=== PATIENT | female | born 1975 | race African-American/Black ===

== ENCOUNTER 2021-07-23 17:48 | Emergency (ER) | payer SELFPAY ==
--- OUTSIDE RECORDS SUMMARY | 2021-07-23 17:50 | XMS REPORT | Continuity of Care Document ---
:1975 Author Organization [facility] t Address [address] [place] [address] Care Team Providers Name Role Phone UNKNOWN Primary Care Physician Unavailable Debra PALMA Attending Clinician Unavailable Tristan Galeas Attending Clinician Tristan MONROE Attending Clinician Unavailable Angel RAMIREZ Attending Clinician Unavailable LAKESHA MCGILL M.D. Attending Clinician Unavailable LAKESHA MCGILL M.D. Admitting Clinician Unavailable Payers Payer Name Policy Type Policy Number Effective Date Expiration Date S ource Problems Condition Condition Condition Status Onset Resolution Last Treating Co mments Source Name Details Category Date Date Treatment Clinician Date Other Other Disease Active Univers general general - [place] advice 00 Me dical for for Branch contracept contracept jacinto jacinto management management History of History of Disease Active U gelacio herpes herpes 04-04 [place] Contact Contact Disease Active Univers with and with and 2-21 [place] of (suspected [place] exposure ) exposure 00 Me dical to to Branch infections infections with a with a predominan predominan tly sexual tly sexual mode of mode of transmissi transmissi on on Screening Screening Disease Active Uni vers examinatio examinatio 4-11 it y of n for n for 00:00: [place] venereal venereal 00 Medica l disease disease Branch Hypertensi Hypertensi Disease Active U nivers on, on, 03-19 ity of unspecifie [place] type d type 00 Medical [place] Obesity Obesity Disease Active Univers (BMI (BMI - ity of 30-39.9) 30-39.9) 00:00: [place] 00 Medical Branch Vaginal Vaginal Disease Active Univers discharge discharge -18 ity of 00:00: [place] [id number] Medical Branch History of History of Disease Active U nivers tubal tubal -17 ity of ligation ligation 00:00: [address] Encounter Encounter Disease Active Uni vers for for 5-17 [place] of screening [place] mamm[place] mamm[place] 00 Med[place] ariela for breast for breast Br anch cancer cancer History of History of Disease Active U cassieers depression depression -17 it y of 00:00: [address] Tobacco Tobacco Disease Active Univers use use - ity of disorder disorder 00:00: [address] Allergies, Adverse Reactions, Alerts Allergy Allergy Status Severity Reaction(s) Onset Inactive Treating Comm ents Source Name Type Date Date Clinician NO KNOWN Drug Active Univers ALLERGIE Class ity of S [facility] Social History Social Habit Start Date Stop Date Quantity Comments Source History of tobacco Cigarette Smoker University of use [facility] History SDOH University o f Alcohol Frequency [facility] Branch History SDOH University o f Alcohol Std Drinks [facility] History SDOH University o f Alcohol Binge [facility] al Branch Exposure to Not sure [place] of SARS-CoV-2 (event) [facility] Alcohol intake 2021-04-04 2021-04-04 .86 /d University of 00:00:00 00:00:00 [facility] Cigarette 2016-11-27 2016-11-27 University of pack-years 00:00:00 00:00:00 [facility] Tobacco use and 2016-11-27 2016-11-27 Never used Universit y of exposure 00:00:00 00:00:00 [facility] Alcohol Comment 2016-11-27 2016-11-27 social drinker Unive rsity of 00:00:00 00:00:00 [facility] Cigarettes smoked 2016-11-27 2016-11-27 Univers ity of current (pack per 00:00:00 00:00:00 [facility] ) - Reported Branch Sex Ass[birth year] At [birth year] Universit y of 00:00:00 00:00:00 [facility] Smoking Status Start Date Stop Date Source Current every day smoker 2016-11-27 00:00:00 Uni versity of [facility] Medications Ordered Filled Start Stop Current Ordering Indication Dosage Frequency Signature Comments Components Source Medication Medication Date Date Medication? Clinician (SIG) Name Name acyclovir Yes [id number] 400mg Take 1 Univers 400 mg 9-22 tablet by ity of tablet 00:00: mouth 2 [place] (two) Medical times Branch daily. acyclovir Yes [id number] 400mg Take 1 Univers 400 mg 9-22 tablet by ity of tablet 00:00: mouth 2 [place] 00 (two) Medical times [place] daily. Immunizations Ordered Filled Immunization Date Status Comments Sour e Immunization Name Name SARS-COV-2 COVID-19 2020-11-13 Completed Unive rsity of PFIZER VACCINE 00:00:00 [facility] SARS-COV-2 COVID-19 2020-11-13 Completed Unive rsity of PFIZER VACCINE 00:00:00 [facility] SARS-COV-2 COVID-19 2020-10-12 Completed Unive rsity of PFIZER VACCINE 00:00:00 [facility] SARS-COV-2 COVID-19 2020-10-12 Completed Unive rsity of PFIZER VACCINE 00:00:00 [facility] Influenza Virus 2020-04-20 Completed Universit y of Vaccine Quad .5 mL 00:00:00 [facility] 6+ MO [place] Influenza Virus 2020-04-20 Completed Universit y of Vaccine 00:00:00 [facility] Influenza Virus 2020-04-20 Completed Universit y of Vaccine Quad .5 mL 00:00:00 [facility] 6+ MO [place] Influenza Virus 2020-04-20 Completed Universit y of Vaccine 00:00:00 [facility] Influenza Virus 2019-09-03 Completed Universit y of Vaccine Quad .5 mL 00:00:00 [facility] 6+ MO [place] Influenza Virus 2019-09-03 Completed Universit y of Vaccine Quad .5 mL 00:00:00 [facility] 6+ [place] Branch PPD (TB) 2004-07-14 Completed University 00:00:00 [facility] PPD (TB) 2004-07-14 Completed University of 00:00:00 [facility] TDAP (ADACEL) 2001-07-14 Completed University of VACCINE 00:00:00 [facility] TDAP (ADACEL) 2001-07-14 Completed [facility] VACCINE 00:00:00 [facility] Vital Signs Vital Name Observation Time Observation Value Comments Source Systolic blood 2021-04-04 14:05:00 138 mm[Hg] Univer sity of pressure [facility] Diastolic blood 2021-04-04 14:05:00 88 mm[Hg] Unive rsity of pressure [facility] Heart rate 2021-04-04 14:05:00 88 /min [facility] Body temperature 2021-04-04 14:05:00 36.83 [facility] Respiratory rate 2021-04-04 14:05:00 [facility] Body height 2021-04-04 14:05:00 165.1 cm [facility] Body weight 2021-04-04 14:05:00 115.849 kg [facility] BMI 2021-04-04 14:05:00 42.50 kg/m2 [facility] Procedures Procedure Date / Time Performed Performing Clinician Sourc e GC & CHLAMYDIA 2021-04-04 14:43:00 June Monroe [facility] AMPLIFIED ASSAY [facility] HIV 1/2 AG-AB WITH 2021-04-04 14:35:00 June Monroe [facility] REFLEX [facility] GALV ONLY - SYPHILIS 2021-04-04 14:35:00 June Monroe [facility] IGG/IGM [facility] Encounters Start End Encounter Admission Attending Care Care Encounter Source Date/Time Date/Time Type Type Clinicians Facility Department ID 2021-07-05 2021-07-05 Outpatient Angel PALMA [facility] [id number] Univers 13:00:00 13:00:00 JESSICA [id number] [facility] 2021-05-02 2021-05-02 Outpatient Angel PALMA [facility] [id number] Univers 09:45:00 09:45:00 JESSICA [id number] [facility] 2021-05-02 2021-05-02 Outpatient R LOUIE, [facility] [id number] Univers 09:45:00 09:45:00 [facility] 2021-04-09 2021-04-09 [facility] [id number] Univers 00:00:00 00:00:00 June Hudson PEDIATRIC CRITICAL CARE NURSE [id number] ity [facility] [id number] Arnaldo as MATERNAL [id number] [facility] ical & CHILD [address] [place] [address] 2021-04-04 2021-04-04 Office [facility] [id number] Univers 08:54:02 09:36:30 Visit June Hudson PEDIATRIC CRITICAL CARE NURSE [id number] [id number] Arnaldo as MATERNAL [id number] [facility] & [address] 2021-04-04 2021-04-04 Outpatient R AKINSIPE, [facility] [id number] Univers 09:00:00 09:00:00 JUNE [id number] ity o [facility] 2021-04-04 2021-04-04 Outpatient R AKINSIKM, [facility] [id number] Univers 09:00:00 09:00:00 JUNE ity o [facility] 2021-04-02 2021-04-02 Outpatient AKINSI, [facility] [id number] Univers 08:45:00 08:45:00 JUNE [id number] ity o [facility] 2021-04-02 2021-04-02 Outpatient R AKINSIPE, [facility] [id number] Univers 08:45:00 08:45:00 JUNE ity o [facility] 2020-11-24 2020-11-24 Outpatient R [facility] [id number] Univers 13:30:00 13:30:00 [id number] [facility] 2020-11-24 2020-11-24 Outpatient R [facility] [id number] Univers 13:30:00 13:30:00 it[facility] 2020-11-10 2020-11-10 Outpatient R [facility] [id number] Univers 13:30:00 13:30:00 [id number] ity [facility] 2020-11-10 2020-11-10 Outpatient R [facility] [id number] Univers 13:30:00 13:30:00 ity [facility] 2020-10-20 2020-10-20 Outpatient R [facility] [id number] Univers 13:30:00 13:30:00 [id number] ity [facility] 2020-10-20 2020-10-20 Outpatient R [facility] [id number] Univers 13:30:00 13:30:00 [facility] 2020-10-05 2020-10-05 Outpatient R JAMES [facility] [id number] Univers 11:00:00 11:00:00 EMILY [id number] ity o [facility] 2020-10-05 2020-10-05 Outpatient R JAMES [facility] [id number] Univers 11:00:00 11:00:00 JOEYNDA ity o [facility] 2020-10-04 2020-10-04 Outpatient JAMES [facility] [id number] Univers 09:00:00 09:00:00 EMILY [id number] ity o [facility] 2020-09-26 2020-09-26 Outpatient R JAMES [facility] [id number] Univers 12:45:00 12:45:00 JOEYNDFortunato [id number] ity o [facility] 2020-09-26 2020-09-26 Outpatient R JAMES [facility] [id number] Univers 12:45:00 12:45:00 ROSHUNDA ity o [facility] 2020-06-26 2020-06-26 Outpatient R YAMILET, [facility] [id number] Univers 16:00:00 16:00:00 JUNE [id number] ity o [facility] 2020-05-22 2020-05-22 Outpatient R LOUIE, [facility] [id number] Univers 14:15:00 14:15:00 JESSICA [facility] 2020-05-22 2020-05-22 Outpatient Angel PALMA [facility] [id number] Univers 00:00:00 00:00:00 JESSICA [facility] 2020-04-20 2020-04-20 Outpatient Angel PALMA [facility] [id number] Univers 11:00:00 11:00:00 JESSICA [id number] [facility] 2020-04-20 2020-04-20 Outpatient Angel PALMA [facility] [id number] Univers 11:00:00 11:00:00 JESSICA [facility] 2020-01-20 2020-01-20 Outpatient Angel RAMIREZ [facility] [id number] Univers 09:15:00 09:15:00 PAYAMRAEGANSTEPHANIEFortunato [id number] navin easley [facility] 2020-01-20 2020-01-20 Outpatient Angel RAMIREZ, [facility] [id number] Univers 09:15:00 09:15:00 PAYAMRAEGANSTEPHANIEFortunato easley [facility] 2019-11-05 2019-11-05 Outpatient Angel RAMIREZ [facility] [id number] Univers 08:30:00 08:30:00 EMILY easley [facility] 2017-05-06 2017-05-08 [id number] [facility] 02:00:00 17:53:00 [facility] Results Test Description Test Time Test Comments Results Result Comments Source RPR, Qual 2017-05-06 16:41:00 Test Item Value Reference Range Interpretation Comme nts RPR (test code = RPR) Non-Reactive Non-Reactive N Thyroid Stimulating Hormone (TSH)2017-05-06 06:59:00 Test Item Value Reference Range Interpretation Comments TSH (test code = TSH) 1.75 mIU/mL 0.270-4.200 N Lipid [id number] 06:51:00 Test Item Value Reference Range Interpretation Comments Cholesterol (test 192 mg/dL 0-200 N code = CHOL) Triglycerides (test 88 mg/dL 9-200 N code = TRIG) HDL (test code = 66 mg/dL 50-60 H HDL) Chol/HDL (test code 2.9 Ratio 0.0-4.4 N = CHOLPHDL) LDL, Calculated 108 0-130 N (NOTE)RISK O F HEART (test code = LDLC) DISEASEPu blished by [place] Heart AssociationAnal yte Optim al Boderline Increased RiskC HOL <200 200-239 >240TRI G <150 150-199 >200HDL Male: >60 <40HDL Female: >60 <50 LDL < 100 130-15 9 >160 LDL NEAR OPTIMAL IS 100- 129 VLDL (test code = 18 mg/dL 5-40 N VLDL) LDL/HDL (test code = 2 LDLPHDL)
[2021-07-23 19:27] LABS: SARS-COV-2 RT PCR POSITIVE (NEGATIVE)
--- NOTE | 2021-07-23 19:27 | EDPHYS ---
[facility] Name: Traci Mondragon Age: 46 yrs Sex: Female : 1975 Arrival Date: 07/23/2021 Time: 17:50 Bed Waiting Private MD: ED Physician Davidson Reyna HPI: 07/23 18:57 This 46 yrs old Black Female presents to ER via Ambulatory with complaints of Flu kb Symptoms. 18:57 The patient or guardian reports cough, that is intermittent, described as mild, flu kb symptoms, low-grade fever, myalgias. Onset: The symptoms/episode began/occurred 4 day(s) ago. Severity of symptoms: At their worst the symptoms were moderate, in the emergency department the symptoms are unchanged. Modifying factors: The symptoms are alleviated by nothing, the symptoms are aggravated by nothing. Associated signs and symptoms: Pertinent positives: fever, rhinorrhea, Pertinent negatives: chest pain, diarrhea, ear ache, nausea, sore throat, vomiting. The patient has not experienced similar symptoms in the past. The patient has not recently seen a physician. 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 - Social history:: Smoking status: Patient reports the use of cigarette tobacco products, smokes one-half pack cigarettes per day. ROS: 18:56 Cardiovascular: Negative for chest pain, palpitations, and edema. kb 18:56 Constitutional: Positive for body aches, chills, fatigue, fever, malaise. 18:56 ENT: Positive for sinus congestion. 18:56 Respiratory: Positive for cough, Negative for dyspnea on exertion, hemoptysis, orthopnea, pleurisy, shortness of breath, sputum production, wheezing. 18:56 All other systems are negative. Exam: 18:57 Constitutional: This is a well developed, well nourished patient who is awake, alert, kb and in no acute distress. Head/Face: Normocephalic, atraumatic. ENT: Moist Mucous membranes Cardiovascular: Regular rate and rhythm with a normal S1 and S2. No gallops, murmurs, or rubs. No pulse deficits. Respiratory: Respirations even and unlabored. No increased work of breathing. Talking in full sentences Skin: Warm, dry with normal turgor. Normal color. MS/ Extremity: Pulses equal, no cyanosis. Neurovascular intact. Full, normal range of motion. Neuro: Awake and alert, GCS 15, oriented to person, place, time, and situation. Moves all extremities. Normal gait. Psych: Awake, alert, with orientation to person, place and time. Behavior, mood, and affect are within normal limits. Vital Signs: 18:02 BP 163 / 116; Pulse 104; Resp 18; Temp 97.7; Pulse Ox 99% ; Weight 114.76 kg; Height 5 ll1 ft. 4 in. (162.56 cm); Pain 10/10; 18:02 Body Mass Index 43.43 (114.76 kg, 162.56 cm) ll1 MDM: 18:06 Patient medically screened. kb 18:56 Data reviewed: vital signs, nurses notes. Data interpreted: Pulse oximetry: on room air kb is 99 %. Interpretation: normal. 19:26 Counseling: I had a detailed discussion with the patient and/or guardian regarding: the kb historical points, exam findings, and any diagnostic results supporting the discharge/admit diagnosis, lab results, the need for outpatient follow up, a family practitioner, to return to the emergency department if symptoms worsen or persist or if there are any questions or concerns that arise at home. 07/23 18:06 Order name: COVID-19/FLU A+B (Document "Date of Onset" if Symptomatic); Complete Time: kb 19:28 Administered Medications: No medications were administered Disposition: 07/24 07:05 Co-signature as Attending Physician, Davidson Reyna MD I agree with the assessment and rn plan of care. Attestation: The patient's history, exam findings, diagnostics, and a summary of any interventions or procedures was reviewed in detail with Jil AVILA. Disposition Summary: 07/23/21 19:26 Discharge Ordered Location: Home kb Condition: Stable kb Diagnosis - Coronavirus infection, unspecified kb Followup: kb - With: Emergency Department - When: As needed - Reason: Worsening of condition Followup: kb - With: Private Physician - When: 2 - 3 days - Reason: Recheck today's complaints, Continuance of care, Re-evaluation by your physician Discharge Instructions: - Discharge Summary Sheet kb - Viral Respiratory Infection, [id number] kb - COVID-19 kb Forms: - Medication Reconciliation Form kb - Thank You Letter kb - Antibiotic Education kb - Prescription Opioid Use kb Signatures: Dispatcher [employer] EDJil Foreman, CANDY DECORATOR-C CANDY DECORATOR-Davidson Yang MD MD rn Lewis, Lynsay, RN RN ll1 Corrections: (The following items were deleted from the chart) 07/23 18:04 18:04 PMHx: None; ll1 ll1
--- NOTE | 2021-07-23 19:27 | ER ---
Nurse's Notes [facility] Name: Traci Mondragon Age: 46 yrs Sex: Female : 1975 Arrival Date: 07/23/2021 Time: 17:50 Bed Waiting Private MD: Diagnosis: Coronavirus infection, unspecified Presentation: 07/23 18:02 Chief complaint: Patient states: Cough, body aches, fever since Friday. Coronavirus ll1 screen: Vaccine status: Patient reports receiving the 2nd dose of the covid vaccine. Client denies travel out of the [place] in the last 14 days. congestion, cough unrelated to allergies, fatigue, fever, headache, Client presents with at least one sign or symptom that may indicate coronavirus-19. Standard/surgical mask placed on the client. Ebola Screen: Patient denies travel to an Ebola-affected area in the 21 days before illness onset. Initial Sepsis Screen: Does the patient meet any 2 criteria? HR > 90 bpm. No. Patient's initial sepsis screen is negative. Does the patient have a suspected source of infection? Yes: Productive cough/pneumonia. Risk Assessment: Do you want to hurt yourself or someone else? Patient reports no desire to harm self or others. Onset of symptoms was July 20, 2021. 18:02 Method Of Arrival: Ambulatory ll1 18:02 Acuity: THIAGO 4 ll1 Triage Assessment: 19:45 General: Appears in no apparent distress. Behavior is calm, cooperative, appropriate ll1 for age. Pain: Denies pain. 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 - Social history:: Smoking status: Patient reports the use of cigarette tobacco products, smokes one-half pack cigarettes per day. Screenin:45 Abuse screen: Denies threats or abuse. Nutritional screening: No deficits noted. ll1 Tuberculosis screening: No symptoms or risk factors identified. Fall Risk Total Pedro Fall Scale indicates No Risk (0-24 pts). Vital Signs: 18:02 BP 163 / 116; Pulse 104; Resp 18; Temp 97.7; Pulse Ox 99% ; Weight 114.76 kg; Height 5 ll1 ft. 4 in. (162.56 cm); Pain 10/10; 18:02 Body Mass Index 43.43 (114.76 kg, 162.56 cm) ll1 ED Course: 17:50 Patient arrived in ED. mr 18:04 Triage completed. ll1 18:04 Arm band placed on. ll1 18:06 Jil Fowler FNP-C is [facility]. kb 18:06 Davidson Reyna MD is Attending Physician. kb 19:45 Patient has correct armband on for positive identification. ll1 19:45 No provider procedures requiring assistance completed. Patient did not have IV access ll1 during this emergency room visit. Administered Medications: No medications were administered Outcome: 19:26 Discharge ordered by . kb 19:45 Discharged to home ambulatory. ll1 19:45 Condition: stable 19:45 Discharge instructions given to patient, Instructed on discharge instructions, follow up and referral plans. Demonstrated understanding of instructions, follow-up care. 19:45 Patient left the ED. ll1 Signatures: Jil Fowler FNP-C FNP-Jazmine Harvey Genet Jean RN RN ll1 Corrections: (The following items were deleted from the chart) 18:04 18:04 PMHx: None; ll1 ll1
[2021-07-23 19:51] VITALS: BP 163/116; TEMP 97.7; O2SAT 99
== END 2021-07-23 19:45 | disposition home or self-care (01) ==
LOC: ER 17:48
DX: U07.1 COVID-19 (principal); I10 Essential (primary) hypertension
CPT/HCPCS: 0240U; 99281

== ENCOUNTER 2021-12-01 21:47 | Emergency (ER) | payer SELFPAY ==
--- OUTSIDE RECORDS SUMMARY | 2021-12-01 21:53 | XMS REPORT | Continuity of Care Document ---
:1975 Author Organization [facility] t Address [address] [place] [address] Care Team Providers Name Role Phone UNKNOWN Primary Care Physician Unavailable Angel Pham Attending Clinician Debra PALMA Attending Clinician Unavailable Tristan Galeas Attending Clinician Tristan WOODARD Attending Clinician Unavailable Angel RAMIREZ Attending Clinician Unavailable LAKESHA MCGILL M.D. Attending Clinician Unavailable LAKESHA MCGILL M.D. Admitting Clinician Unavailable Payers Payer Name Policy Type Policy Number Effective Date Expiration Date S ource Problems Condition Condition Condition Status Onset Resolution Last Treating Co mments Source Name Details Category Date Date Treatment Clinician Date Other Other Disease Active Univers general general 9-22 [place] dical for for Branch contracept contracept jacinto jacinto management management History of History of Disease Active U nivers herpes herpes 9-22 [place] of genital[place] type d type [facility] Obesity Obesity Disease Active Univers (BMI (BMI - ity of 30-39.9) 30-39.9) 00:00: [place] [address] [facility] Branch Vaginal Vaginal Disease Active Univers discharge discharge -18 ity of 00:00: [place] [address] Medical Branch History of History of Disease Active U nivers tubal tubal -17 ity of ligation ligation 00:00: [place] [address] [place] Encounter Encounter Disease Active Uni vers for for 5-17 ity of screening screening 00:00: Addi krueger mammogram mammogram 00 [facility] ariela for breast for breast Br anch cancer cancer History of History of Disease Active U nivers depression depression -17 it y of 00:00: [place] [facility] Tobacco Tobacco Disease Active Univers use use 17 ity of disorder disorder 00:00: [address] Allergies, Adverse Reactions, Alerts Allergy Allergy Status Severity Reaction(s) Onset Inactive Treating Comm ents Source Name Type Date Date Clinician NO KNOWN Drug Active Univers ALLERGIE Class ity of S [facility] Social History Social Habit Start Date Stop Date Quantity Comments Source History of tobacco Cigarette Smoker University of use [facility] History SDOH University o f Alcohol Frequency [facility] History SDOH University o f Alcohol Std Drinks [facility] History SDLA University o f Alcohol Binge [facility] Branch Exposure to Not sure University of SARS-CoV-2 (event) [facility] Alcohol intake 2021-04-04 2021-04-04 .86 /d University of 00:00:00 00:00:00 [facility] Cigarettes smoked 2016-11-27 2016-11-27 Univers ity of current (pack per 00:00:00 00:00:00 [facility] ) - Reported Branch Cigarette 2016-11-27 2016-11-27 University of pack-years 00:00:00 00:00:00 [facility] Tobacco use and 2016-11-27 2016-11-27 Never used Universit y of exposure 00:00:00 00:00:00 [facility] Alcohol Comment 2016-11-27 2016-11-27 social drinker Unive rsity of 00:00:00 00:00:00 [facility] Sex Ass[birth year] At [birth year] Universit y of 00:00:00 00:00:00 [facility] Smoking Status Start Date Stop Date Source Current every day smoker 2016-11-27 00:00:00 Uni versity of [facility] Medications Ordered Filled Start Stop Current Ordering Indication Dosage Frequency Signature Comments Components Source Medication Medication Date Date Medication? Clinician (SIG) Name Name acyclovir 2020-0 Yes [id number] 400mg Take 1 Univers 400 mg 9-22 tablet by ity of tablet 00:00: mouth 2 [place] 00 (two) Medical times Branch daily. acyclovir 2020-0 Yes [id number] 400mg Take 1 Univers 400 mg 9-22 tablet by ity of tablet 00:00: mouth 2 [place] 00 (two) Medical times Branch daily. acyclovir 2020-0 Yes [id number] 400mg Take 1 Univers 400 mg 9-22 tablet by ity of tablet 00:00: mouth 2 [place] 00 (two) Medical times Branch daily. Immunizations Ordered Filled Immunization Date Status Comments Sour e Immunization Name Name SARS-COV-2 COVID-19 2020-11-13 Completed Unive rsity of PFIZER VACCINE 00:00:00 [facility] SARS-COV-2 COVID-19 2020-11-13 Completed Unive rsity of PFIZER VACCINE 00:00:00 [facility] SARS-COV-2 COVID-19 2020-11-13 Completed Unive rsity of PFIZER VACCINE 00:00:00 [facility] SARS-COV-2 COVID-19 2020-10-12 Completed Unive rsity of PFIZER VACCINE 00:00:00 [facility] SARS-COV-2 COVID-19 2020-10-12 Completed Unive rsity of PFIZER VACCINE 00:00:00 [facility] SARS-COV-2 COVID-19 2020-10-12 Completed Unive rsity of PFIZER VACCINE 00:00:00 [facility] Influenza Virus 2020-04-20 Completed Universit y of Vaccine Quad .5 mL 00:00:00 [facility] 6+ [place] Influenza Virus 2020-04-20 Completed Universit y of Vaccine 00:00:00 [facility] Influenza Virus 2020-04-20 Completed Universit y of Vaccine Quad .5 mL 00:00:[address] [facility] IM 6+ MO Branch Influenza Virus 2020-04-20 Completed Universit y of Vaccine 00:00:00 [facility] Influenza Virus 2020-04-20 Completed Universit y of Vaccine Quad .5 mL 00:00:00 [facility] 6+ [place] Branch Influenza Virus 2020-04-20 Completed Universit y of Vaccine 00:00:00 [facility] Influenza Virus 2019-09-03 Completed Universit y of Vaccine Quad .5 mL 00:00:00 [place] [facility] 6+ [place] Branch Influenza Virus 2019-09-03 Completed Universit y of Vaccine Quad .5 mL 00:00:00 [facility] 6+ MO Branch Influenza Virus 2019-09-03 Completed Universit y of Vaccine Quad .5 mL 00:00:00 [facility] 6+ [place] Branch PPD (TB) 2004-07-14 Completed University of 00:00:00 [facility] PPD (TB) 2004-07-14 Completed University of 00:00:00 [facility] PPD (TB) 2004-07-14 Completed University of 00:00:00 [facility] TDAP (ADACEL) 2001-07-14 Completed University of VACCINE 00:00:00 [facility] TDAP (ADACEL) 2001-07-14 Completed University of VACCINE 00:00:00 [facility] TDAP (ADACEL) 2001-07-14 Completed University of VACCINE 00:00:00 [facility] Vital Signs Vital Name Observation Time Observation Value Comments Source Systolic blood 2021-04-04 14:05:00 138 mm[Hg] Univer sity of pressure [facility] Diastolic blood 2021-04-04 14:05:00 88 mm[Hg] Unive rsity of pressure [facility] Heart rate 2021-04-04 14:05:00 88 /min [facility] Body temperature 2021-04-04 14:05:00 36.83 Senia [facility] Res[facility] 2021-04-04 14:05:00 18 /min [facility] Body height 2021-04-04 14:05:00 165.1 cm [facility] Body weight 2021-04-04 14:05:00 115.849 kg [facility] BMI 2021-04-04 14:05:00 42.50 kg/m2 Universi ty [facility] Procedures Procedure Date / Time Performed Performing Clinician Sourc e GC & CHLAMYDIA 2021-04-04 14:43:00 June Woodard [facility] AMPLIFIED ASSAY [facility] HIV 1/2 AG-AB WITH 2021-04-04 14:35:00 June Woodard [facility] GALV ONLY - [place] 2021-04-04 14:35:00 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 [id number] ity of [facility] [id number] Arnaldo as MATERNAL [id number] Med ical & CHILD [address] [place] [address] 2021-07-05 2021-07-05 [facility] [id number] Univers 13:00:00 13:00:00 JESSICA [id number] [facility] 2021-05-02 2021-05-02 [facility] [id number] Univers 09:45:00 09:45:00 JESSICA [id number] [facility] 2021-05-02 2021-05-02 [facility] [id number] Univers 09:45:00 09:45:00 JESSICA [facility] 2021-04-09 2021-04-09 Telephone Yamilet [facility] [id number] Univers 00:00:00 00:00:00 June Hudson WALL COVERING INSTALLER [id number] [facility] [id number] Arnaldo as MATERNAL [id number] [facility] ical & CHILD [address] [place] [address] 2021-04-04 2021-04-04 Office Yamilet [facility] [id number] Univers 08:54:02 09:36:30 Visit June Hudson WALL COVERING INSTALLER [id number] [facility] [id number] Arnaldo as MATERNAL [phone] [facility] ical & CHILD [address] [place] [address] 2021-04-04 2021-04-04 Outpatient R AKINSIPE, [facility] [id number] Univers 09:00:00 09:00:00 JUNE [id number] ity o [facility] 2021-04-04 2021-04-04 Outpatient R AKINSIPE, [facility] [id number] Univers 09:00:00 09:00:00 JUNE ity o [facility] 2021-04-02 2021-04-02 Outpatient AKINSIPE, [facility] [id number] Univers 08:45:00 08:45:00 JUNE [id number] ity o [facility] 2021-04-02 2021-04-02 Outpatient R AKINSIPE, [facility] [id number] Univers 08:45:00 08:45:00 JUNE ity o [facility] 2020-11-24 2020-11-24 Outpatient R [facility] [id number] Univers 13:30:00 13:30:00 [id number] [facility] 2020-11-24 2020-11-24 Outpatient R [facility] [id number] Univers 13:30:[facility]10 2020-11-10 Outpatient R [facility] [id number] Univers 13:30:00 13:30:00 [id number] [facility] 2020-11-10 2020-11-10 Outpatient R [facility] [id number] Univers 13:30:00 [facility]:30:[facility] 2020-10-20 2020-10-20 Outpatient R [facility] [id number] Univers 13:30:00 13:30:00 [id number] [facility] 2020-10-20 2020-10-20 Outpatient R [facility] [id number] Univers 13:30:00 13:30:00 ity of [facility] 2020-10-05 2020-10-05 Outpatient Angel RAMIREZ [facility] [id number] Univers 11:00:00 11:00:00 JOEYMIRANDA [id number] ity o f [facility] 2020-10-05 2020-10-05 Outpatient Angel RAMIREZ [facility] [id number] Univers 11:00:00 11:00:00 JOEYNDA ity o f [facility] 2020-10-04 2020-10-04 Outpatient JAMES [facility] [id number] Univers 09:00:00 09:00:00 PAYAMRAEGANMIRANDA [id number] ity o [facility] 2020-09-26 2020-09-26 Outpatient Angel RAMIREZ [facility] [id number] Univers 12:45:00 12:45:00 JOEYMIRANDA [id number] ity o [facility] 2020-09-26 2020-09-26 Outpatient Angel RAMIREZ [facility] [id number] Univers 12:45:00 12:45:00 JOEYMIRANDA ity o [facility] 2020-06-26 2020-06-26 Outpatient R YAMILET, [facility] [id number] Univers 16:00:00 16:00:00 JUNE [id number] ity o [facility] 2020-05-22 2020-05-22 Outpatient Angel PALMA, [facility] [id number] Univers 14:15:00 14:15:00 JESSICA [facility] 2020-05-22 2020-05-22 Outpatient Angel PALMA, [facility] [id number] Univers 00:00:00 00:00:00 JESSICA [facility] 2020-04-20 2020-04-20 [facility] [id number] Univers 11:00:00 11:00:00 JESSICA [id number] [facility] 2020-04-20 2020-04-20 [facility] [id number] Univers 11:00:00 11:00:00 JESSICA [facility] 2020-01-20 2020-01-20 Outpatient Angel ARMIREZ [facility] [id number] Univers 09:15:00 09:15:00 CELY [id number] navin easley [facility] 2020-01-20 2020-01-20 Outpatient Angel RAMIREZ [facility] [id number] Univers 09:15:00 09:15:00 CELY easley [facility] 2019-11-05 2019-11-05 Outpatient Angel RAMIREZ [facility] [id number] [facility] 08:30:00 08:30:00 CELY easley [facility] 2017-05-06 2017-05-08 Inpatient Kush MCGILL, [facility] [id number] 02:00:00 17:53:00 [facility] Results Test Description Test Time Test Comments Results Result Comments Source CT/NG, NAAT, URINE 2021-09-07 15:58:55 Test Item Value Reference Range Interpretation Comme nts GONORRHEA, NAAT NEGATIVE NEGATIVE IMPORTANT NOTICE: SEE ANNOUNCEMENT (test code = [place] [address]) [email or web address] Note: Assay methodolo gy is nucleic acid amplification by transcriptio n mediated amplification (TMA) utilizing the Aptima Combo 2 Assay. CHLAMYDIA, NAAT NEGATIVE NEGATIVE IMPORTANT NOTICE: SEE ANNOUNCEMENT (test code = [place] [address]) [email or web address] Note: Assay methodolo gy is nucleic acid amplification by transcriptio n mediated amplification (TMA) utilizing the Aptima Combo 2 Assay. PAP TEST, THINPREP, [id number] 15:46:34 Test Item Value Reference Range Interpretation Comments SOURCE: (test Cervical code = 8001) SLIDES: (test 1 code = 8011) LMP: (test code 07/14/2021 = 8021) SPECIMEN (NOTE) Satisfacto ry for ADEQUACY: (test evaluation. code = 87057) Endocervical cells/transform ation zone component not identified. INTERPRETATION: NILM/NO EPITH. (test code = ABNORMALITY;SEE 52085) BELOW -------- - NEGATIVE FOR INTRAEPITHELIAL LESION OR MALIGNANCY ( NILM) -------- -------- -------- ---- OTHER COMMENTS: (NOTE) Shift in fredrick ra (test code = suggestive of b acterial 8081) vaginosis. 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 The Pap test is a screening test with an inherent, but l ow probability of error. Your patient sh ould be reminded to consult you immediately if she experiences any suspicious signs or symptoms, regar dless of her Pap test re sult. An alternate r eport format containi ng images or conso lidated prior Pap hi story is available as applicable. UNLESS OTHERWIS E INDICATED, ALL TESTING PERFORMED [facility] [employer] [address] [place] [address] 4 LABORATORY DI VALERIA: Irina SHOEMAKER [id number] CAP ACCREDITATION N O. [id number] VAGINAL PATHOGENS DNA [id number] 14:04:03 Test Item Value Reference Range Interpretation Comments AMARA SPECIES (test NEGATIVE NEGATIVE code = ) G. VAGINALIS (test POSITIVE NEGATIVE A code = ) T. VAGINALIS (test NEGATIVE NEGATIVE UN LESS OTHERWISE code = ) INDICATED, ALL TESTING PERFORMED [facility] [employer] [address] [place] [address] 4 LABORATORY DIR CYNTHIA: MANSI WEN M.D. CLIA NUMBER [id number] CAP ACCREDITATION N O. [id number] HIV 1/2 4TH GEN, RFLX [id number] 03:43:31 Test Item Value Reference Range Interpretation Comments HIV 1/2 4TH GEN, RFLX CONF (test NON-REACTIVE NON-REACTIVE code = 3514) HEPATITIS PANEL, [id number] 03:43:31 Test Item Value Reference Range Interpretation Comments HEPATITIS A IgM (test NON-REACTIVE NON-REACTIVE code = 58546) HEPATITIS B CORE IgM NON-REACTIVE NON-REACTIVE (test code = 4644) HEPATITIS B SURF AG NON-REACTIVE NON-REACTIVE (test code = 2739) HEPATITIS C ANTIBODY NON-REACTIVE NON-REACTIVE (test code = 4675) INTERPRETATION (NOTE) Hepatiti s A HEPATITIS A: (test code sero logy shows no = 2552) evidence of acu te hepatitis A. INTERPRETATION (NOTE) Hepatiti s B HEPATITIS B: (test code sero logy shows no = 38265) evidence of acu te hepatitis B and no indication of exposure to hepatitis B vir us in the previous joseph eight months. INTERPRETATION (NOTE) Hepatiti s C HEPATITIS C: (test code sero logy shows no = 98432) evidence of exposure to hepatitisC viru s at this time. It can take up to 12 months after exposure tothe hepatitis C vir us for antibodies to become detectab le in the bloo d in certain patients. [id number] 03:39:24 Test Item Value Reference Range Interpretation Comments RPR RESULT (test code = NON-REACTIVE NON-REACTIVE 3501) RPR TITER (test code = 3500) NOT INDIC. TITER NOT INDIC. RPR, [id number] 16:41:00 Test Item Value Reference Range Interpretation Comments RPR (test code = RPR) Non-Reactive Non-Reactive N Thyroid Stimulating Hormone (TSH)2017-05-06 06:59:00 Test Item Value Reference Range Interpretation Comments TSH (test code = TSH) 1.75 mIU/mL 0.270-4.200 N Lipid [id number] 06:51:00 Test Item Value Reference Range Interpretation Comments Cholesterol (test 192 mg/dL 0-200 N code = CHOL) Triglycerides (test 88 mg/dL 9-200 N code = TRIG) HDL (test code = 66 mg/dL 50-60 H HDL) Chol/HDL (test code 2.9 Ratio 0.0-4.4 N = CHOLPHDL) LDL, Calculated 108 0-130 N (NOTE)RISK O F HEART (test code = LDLC) DISEASEPu blished by Hait[place] Heart AssociationAnal yte Optim al Boderline Increased RiskC HOL <200 200-239 >240TRI G <150 150-199 >200HDL Male: >60 <40HDL Female: >60 <50 LDL < 100 130-15 9 >160 LDL NEAR OPTIMAL IS 100- 129 VLDL (test code = 18 mg/dL 5-40 N VLDL) LDL/HDL (test code = 2 LDLPHDL)
[2021-12-01 22:39] LABS: Urine Blood 1+ (Negative); Urine Glucose Negative (Negative); Urine Protein 2+ (Negative); Urine Specific Gravity >=1.030 (1.005-1.030)
[2021-12-01 23:00] LABS: Barbiturates NEGATIVE (NEGATIVE); Benzodiazepines NEGATIVE (NEGATIVE); Cocaine POSITIVE (NEGATIVE); METHAMPHETAM NEGATIVE (NEGATIVE); Methadone NEGATIVE (NEGATIVE); Opiates NEGATIVE (NEGATIVE); Phencyclidine NEGATIVE (NEGATIVE); THC Cannibis NEGATIVE (NEGATIVE)
--- NOTE | 2021-12-01 23:26 | ER ---
Nurse's Notes [facility] Name: Traci Mondragon Age: 46 yrs Sex: Female : 1975 Arrival Date: 12/01/2021 Time: 21:51 Bed Waiting Private MD: Diagnosis: Cocaine use, unspecified, uncomplicated Presentation: 12/01 22:17 Chief complaint: Patient states: "I had a relapse and I called the police department tw5 and now I am here. I took cocaine and Percocet.". Chief complaint: Patient states: "I am so embarrassed.". Coronavirus screen: Vaccine status: Patient reports receiving the 2nd dose of the covid vaccine. Moderna. Ebola Screen: Patient negative for fever greater than or equal to 101.5 degrees Fahrenheit, and additional compatible Ebola Virus Disease symptoms Patient denies exposure to infectious person. Patient denies travel to an Ebola-affected area in the 21 days before illness onset. Initial Sepsis Screen: Does the patient meet any 2 criteria? HR > 90 bpm. No. Patient's initial sepsis screen is negative. Does the patient have a suspected source of infection? No. Patient's initial sepsis screen is negative. Risk Assessment: Do you want to hurt yourself or someone else? Patient reports no desire to harm self or others. Onset of symptoms is unknown. 22:17 Method Of Arrival: Law Enforcement: Elana KUMAR [facility] 22:17 Acuity: THIAGO 2 tw5 Triage Assessment: 22:24 General: Appears in no apparent distress. Behavior is anxious. Pain: Denies pain. 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 It has been more than one year since last vaccine. - Social history:: Smoking status: Patient reports the use of cigarette tobacco products, Patient uses street drugs, cocaine. Screenin:17 Abuse screen: Denies threats or abuse. Denies injuries from another. Nutritional tw5 screening: No deficits noted. Tuberculosis screening: No symptoms or risk factors identified. Fall Risk None identified. Assessment: 23:20 General: Appears in no apparent distress. Behavior is calm, cooperative, appropriate tw5 for age. Pain: Denies pain. Neuro: No deficits noted. 23:23 General: Reports "I am just want to go home.". tw5 Overdose: 23:18 [place] Suicide Severity Screening: "In the past month, have you wished you were tw5 or wished you could go to sleep and not wake up?" Patient responds "no." "In the past month, have you actually had any thoughts of killing yourself?" Patient responds "no." "In your lifetime, have you ever done anything, started to do anything, or prepared to do anything to end your life?" Patient responds "no.". 23:18 [place] Suicide Severity Screening: "In the past month, have you wished you were tw5 or wished you could go to sleep and not wake up?" Patient responds "yes." Based off client's responses, additional C-SSRS screening questions required. 23:23 [place] Suicide Severity Screening: "In the past month, have you actually had any tw5 thoughts of killing yourself?" Patient responds "yes." Based off client's responses, additional C-SSRS screening questions required. Vital Signs: 22:17 BP 172 / 112; Pulse 141; Resp 18; Temp 98.8(O); Pulse Ox 100% on R/A; Weight 99.79 kg; tw5 Height 5 ft. 5 in. (165.10 cm); Pain 0/10; 23:18 BP 141 / 101; Pulse 130; Resp 18; Pulse Ox 100% on R/A; tw5 22:17 Body Mass Index 36.61 (99.79 kg, 165.10 cm) tw5 ED Course: 21:51 Patient arrived in ED. jj6 22:23 Triage completed. tw5 22:24 Arm band placed on right wrist. tw5 22:32 Everardo Panda PA is PHCP. cp 22:32 Everardo Rondon MD is Attending Physician. cp 22:42 UDS Sent. mb7 23:17 Patient has correct armband on for positive identification. tw5 23:23 No provider procedures requiring assistance completed. Patient did not have IV access tw5 during this emergency room visit. Administered Medications: No medications were administered Medication: 23:23 VIS not applicable for this client. Outcome: 23:25 Discharge ordered by . emma 23:29 Discharged to home ambulatory. tw 23:29 Condition: good 23:29 Discharge instructions given to patient, Instructed on discharge instructions, follow up and referral plans. Demonstrated understanding of instructions, follow-up care. 23:30 Patient left the ED. tw Signatures: Everardo Panda PA PA cp Wood, Tiffany tw5 Sharifa Ulloaj6 Jazmine Ga mb7 Corrections: (The following items were deleted from the chart) 23:23 23:17 BASIC METABOLIC PANEL+C.LAB.BRZ drawn and sent. EDMS 23:23 23:17 CBC+H.LAB.BRZ drawn and sent. EDMS 23:23 23:17 Troponin High Sensitivity+C.LAB.BRZ drawn and sent. EDMS
--- NOTE | 2021-12-01 23:26 | EDPHYS ---
Physician Documentation [facility] Name: Traci Mondragon Age: 46 yrs Sex: Female : 1975 Arrival Date: 12/01/2021 Time: 21:51 Bed Waiting Private MD: ED Physician Everardo Rondon HPI: 12/01 23:19 This 46 yrs old Black Female presents to ER via Law Enforcement with complaints of Drug cp Abuse. 23:19 The patient presents to the emergency department with a history of substance abuse, cp Type: cocaine. Onset: The symptoms/episode began/occurred yesterday. Past psychiatric history: Prior diagnosis: addiction history. Associated signs and symptoms: The patient has no apparent associated signs or symptoms. Patient brought to ED by law enforcement for reports use of cocaine. Patient reports last use was yesterday. Denies any chest pain, denies abdominal pain. Patient denies being suicidal and/or homicidal ideation. 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 It has been more than one year since last vaccine. - Social history:: Smoking status: Patient reports the use of cigarette tobacco products, Patient uses street drugs, cocaine. ROS: 23:22 Eyes: Negative for injury, pain, redness, and discharge. cp 23:22 Constitutional: Negative for body aches, chills, fever, poor PO intake. 23:22 Cardiovascular: Negative for chest pain, edema, palpitations. 23:22 Respiratory: Negative for cough, shortness of breath, wheezing. 23:22 Abdomen/GI: Negative for abdominal pain, nausea, vomiting, and diarrhea, constipation. 23:22 Neuro: Negative for altered mental status, dizziness, headache, syncope, weakness. 23:22 Psych: Negative for auditory hallucinations, visual hallucinations, homicidal ideation, suicide gesture, suicidal ideation. 23:22 All other systems are negative. Exam: 23:23 Constitutional: The patient appears in no acute distress, alert, awake, cp non-diaphoretic, non-toxic, well developed, well nourished. 23:23 Head/Face: Normocephalic, atraumatic. cp 23:23 Cardiovascular: Rate: tachycardic, Edema: is not appreciated, JVD: is not appreciated. 23:23 Respiratory: the patient does not display signs of respiratory distress, Respirations: normal, no use of accessory muscles, no retractions, labored breathing, is not present. 23:23 Abdomen/GI: Exam negative for discomfort, distension, guarding, Inspection: abdomen appears normal. 23:23 Neuro: Orientation: to person, place \T\ time. Mentation: is normal, Cerebellar function: is grossly normal, Motor: moves all fours, strength is normal, Gait: is steady, at a normal pace, without difficulty. Vital Signs: 22:17 BP 172 / 112; Pulse 141; Resp 18; Temp 98.8(O); Pulse Ox 100% on R/A; Weight 99.79 kg; tw5 Height 5 ft. 5 in. (165.10 cm); Pain 0/10; 23:18 BP 141 / 101; Pulse 130; Resp 18; Pulse Ox 100% on R/A; tw5 22:17 Body Mass Index 36.61 (99.79 kg, 165.10 cm) tw5 MDM: 23:25 Patient medically screened. cp 23:25 Differential diagnosis: drug withdrawal. depression, psychosis secondary to cp non-compliance. 23:25 Data reviewed: vital signs, nurses notes. Counseling: I had a detailed discussion with cp the patient and/or guardian regarding: the historical points, exam findings, and any diagnostic results supporting the discharge/admit diagnosis, the presence of at least one elevated blood pressure reading (>120/80) during this emergency department visit, to return to the emergency department if symptoms worsen or persist or if there are any questions or concerns that arise at home. 12/01 22:17 Order name: UDS; Complete Time: 23:27 tw5 12/01 22:39 Order name: Urine Dipstick-Ancillary; Complete Time: 23:27 EDMS 12/01 22:43 Order name: EKG; Complete Time: 22:44 tw5 12/01 22:17 Order name: Urine Dipstick-Ancillary (obtain specimen); Complete Time: 22:41 tw5 12/01 22:17 Order name: Urine Test (obtain specimen); Complete Time: 22:41 12/01 22:43 Order name: Cardiac monitoring; Complete Time: 23:17 12/01 22:43 Order name: EKG - Nurse/Tech; Complete Time: 23:17 12/01 22:43 Order name: Labs collected and sent; Complete Time: 23:17 Administered Medications: No medications were administered Disposition Summary: 12/01/21 23:25 Discharge Ordered Location: Home cp Problem: an ongoing problem cp Symptoms: are unchanged cp Condition: Stable cp Diagnosis - Cocaine use, unspecified, uncomplicated cp Followup: cp - With: Private Physician - When: 1 - 2 days - Reason: Recheck today's complaints Discharge Instructions: - Discharge Summary Sheet cp - Cocaine Use Disorder cp Forms: - Medication Reconciliation Form cp - Thank You Letter cp - Antibiotic Education cp - Prescription Opioid Use cp Signatures: Dispatcher [employer] EDMS Everardo Panda PA PA cp Wood, Tiffany Corrections: (The following items were deleted from the chart) 23:22 22:43 IV Saline Lock ordered. 23:22 22:43 Oxygen Per Protocol ordered. 23:22 22:43 O2 Sat Monitoring ordered. 23:23 22:43 BASIC METABOLIC PANEL+C.LAB.BRZ ordered. EDMS EDMS 23:23 22:43 CBC+H.LAB.BRZ ordered. EDMS EDMS 23: 22:43 Troponin High Sensitivity+C.LAB.BRZ ordered. EDMS EDMS
[2021-12-01 23:35] VITALS: TEMP 98.8; O2SAT 100
[2021-12-01 23:37] VITALS: BP 141/101
== END 2021-12-01 23:30 | disposition home or self-care (01) ==
LOC: ER 21:47
DX: F14.90 Cocaine use, unspecified, uncomplicated (principal); I10 Essential (primary) hypertension; Z72.0 Tobacco use
CPT/HCPCS: 80307; 81003; 99283

== ENCOUNTER 2023-02-18 12:42 | Observation (INO) | payer OTHER, SELFPAY ==
--- OUTSIDE RECORDS SUMMARY | 2023-02-18 12:46 | XMS REPORT | Continuity of Care Document ---
:1975 Author Organization [facility] t Address [address] [place] [address] [address] [place] [address] Care Team Providers Name Role Phone UNKNOWN, REFFERING Primary Care Physician Unavailable Cely Pham Attending Clinician MARÍA PALMA Attending Clinician Unavailable June Galeas Attending Clinician [phone] JUNE WOODARD Attending Clinician Unavailable [facility] Resident Attending Clinician Unavailable Isiah Delgado MD Attending Clinician Doctor Unassigned, [place] Attending Clinician Unavailable CELY RAMIREZ Attending Clinician Unavailable Reid Lane DO Attending Clinician María Negron Attending Clinician NGOC MCGILL M.D., Irina CROWDER Attending Clinician Unavailable NGOC MCGILL M.D., NGOC Admitting Clinician Unavail able Payers Payer Name Policy Type Policy Number Effective Date Expiration Date S ource Problems Condition Condition Condition Status Onset Resolution Last Treating Co mments Source Name Details Category Date Date Treatment Clinician Date Other Other Disease Active Univers general general 04-04 [place] counseling [place] 00 Me dical for for Branch contracept contracept jacinto jacinto management management History of History of Disease Active U nivers herpes herpes 9-22 [place] of genital[place] [facility] [place] Contact Disease Active Univers [...] y of n for n for 00:00: [place] venereal venereal 00 Medica l disease disease Branch Hypertensi Hypertensi Disease Active U nivers on, on, 03-19 ity of unspecifie [place] type [place] Obesity Obesity Disease Active Univers (BMI (BMI - ity of 30-39.9) 30-39.9) 00:00: [place] [address] [facility] [place] Vaginal Vaginal Disease Active Univers discharge discharge 5-18 ity of 00:00: [place] [address] [facility] [place] History of History of Disease Active U nivers tubal tubal 5-17 ity of ligation ligation 00:00: [place] [address] [facility] [place] Encounter Encounter Disease Active Uni vers for for 5-17 [place] of screening [place] 00 [facility] ariela for breast for breast Br anch cancer cancer History of History of Disease Active U nivers depression depression 5-17 it y of 00:00: [place] [facility] [place] Tobacco Tobacco Disease Active Univers use use 5-17 ity of disorder disorder 00:00: [address] Allergies, Adverse Reactions, Alerts Allergy Allergy Status Severity Reaction(s) Onset Inactive Treating Comm ents Source Name Type Date Date Clinician NO KNOWN Drug Active Univers ALLERGIE Class ity of S [facility] Social History Social Habit Start Date Stop Date Quantity Comments Source History of tobacco Cigarette Smoker University of use [facility] History SDTX University o f Alcohol Frequency [facility] edical Branch History [facility] University o f Alcohol Std Drinks [place] [facility] [place] History [facility] University o f Alcohol Binge [place] [facility] Exposure to Not sure [facility] SARS-CoV-2 (event) [facility] Alcohol intake 2021-04-04 2021-04-04 .86 /d University of 00:00:00 00:00:00 [facility] Cigarettes smoked 2016-11-27 2016-11-27 Univers ity of current (pack per 00:00:00 00:00:00 ) - Reported Branch Cigarette 2016-11-27 2016-11-27 University of pack-years 00:00:00 00:00:00 [facility] Tobacco use and 2016-11-27 2016-11-27 Never used Universit y of exposure 00:00:00 00:00:00 [facility] Alcohol Comment 2016-11-27 2016-11-27 social drinker Unive rsity of 00:00:00 00:00:00 [facility] Sex Ass[birth year] At [birth year] Universit y of 00:00:00 00:00:00 [facility] Smoking Status Start Date Stop Date Source Current every day smoker 2016-11-27 00:00:00 Uni versity of [facility] Medications Ordered Filled Start Stop Current Ordering Indication Dosage Frequency Signature Comments Components Source Medication Medication Date Date Medication? Clinician (SIG) Name Name acyclovir Yes [id number] 400mg Take 1 Univers 400 mg 9-22 tablet by ity of tablet 00:00: mouth 2 [place] (two) [facility] [place] daily. acyclovir 2020-0 Yes [id number] 400mg Take 1 Univers 400 mg 9-22 tablet by ity of tablet 00:00: mouth 2 [place] (two) [facility] daily. acyclovir 2020-0 Yes [id number] 400mg Take 1 Univers 400 mg 9-22 tablet by ity of tablet 00:00: mouth 2 [place] (two) [facility] daily. Immunizations Ordered Filled Immunization Date Status Comments Sour e Immunization Name Name SARS-COV-2 COVID-19 2020-11-13 Completed Unive rsity of PFIZER VACCINE 00:00:00 [facility] SARS-COV-2 COVID-19 2020-11-13 Completed Unive rsity of PFIZER VACCINE 00:00:00 [facility] SARS-COV-2 COVID-19 2020-11-13 Completed Unive rsity of PFIZER VACCINE 00:00:00 [facility] SARS-COV-2 COVID-19 2020-10-12 Completed Unive rsity of PFIZER VACCINE 00:00:00 [facility] SARS-COV-2 COVID-19 2020-10-12 Completed Unive rsity of PFIZER VACCINE 00:00:00 [facility] SARS-COV-2 COVID-19 2020-10-12 Completed Unive rsity of PFIZER VACCINE 00:00:00 [facility] Influenza Virus 2020-04-20 Completed Universit y of Vaccine Quad .5 mL 00:00:00 [facility] 6+ [place] Influenza Virus 2020-04-20 Completed Universit y of Vaccine 00:00:00 [facility] Influenza Virus 2020-04-20 Completed Universit y of Vaccine Quad .5 mL 00:00:00 [facility] 6+ [place] Influenza Virus 2020-04-20 Completed Universit y of Vaccine 00:00:00 [facility] Influenza Virus 2020-04-20 Completed Universit y of Vaccine Quad .5 mL 00:00:00 [facility] 6+ [place] Influenza Virus 2020-04-20 Completed Universit y of Vaccine 00:00:00 [facility] Influenza Virus 2019-09-03 Completed Universit y of Vaccine Quad .5 mL 00:00:00 [facility] 6+ [place] Influenza Virus 2019-09-03 Completed Universit y of Vaccine Quad .5 mL 00:00:00 [facility] 6+ [place] Influenza Virus 2019-09-03 Completed Universit y of Vaccine Quad .5 mL 00:00:[address] [place] PPD (TB) 2004-07-14 Completed University of 00:00:00 [facility] PPD (TB) 2004-07-14 Completed University of 00:00:00 [facility] PPD (TB) 2004-07-14 Completed University of 00:00:00 [facility] TDAP (ADACEL) 2001-07-14 Completed University of VACCINE 00:00:00 [facility] TDAP (ADACEL) 2001-07-14 Completed University of VACCINE 00:00:00 [facility] TDAP (ADACEL) 2001-07-14 Completed University of VACCINE 00:00:00 [facility] Vital Signs Vital Name Observation Time Observation Value Comments Source Systolic blood 2021-04-04 14:05:00 138 mm[Hg] Univer sity of pressure [facility] Diastolic blood 2021-04-04 14:05:00 88 mm[Hg] Unive rsity of pressure [facility] Heart rate 2021-04-04 14:05:00 88 /min [facility] Body temperature 2021-04-04 14:05:00 36.83 Senia [facility] Respiratory rate 2021-04-04 14:05:00 18 /min [facility] Body height 2021-04-04 14:05:00 165.1 cm [facility] Body weight 2021-04-04 14:05:00 115.849 kg [facility] BMI 2021-04-04 14:05:00 42.50 kg/m2 [facility] Procedures Procedure Date / Time Performed Performing Clinician Sourc e GC & CHLAMYDIA 2021-04-04 14:43:00 June Woodard [facility] AMPLIFIED ASSAY [facility] HIV 1/2 AG-AB WITH 2021-04-04 14:35:00 June Woodard [facility] REFLEX [facility] GALV ONLY - SYPHILIS 2021-04-04 14:35:00 [facility] Encounters Start End Encounter Admission Attending Care Care Encounter Source Date/Time Date/Time Type Type Clinicians Facility Department ID 2023-01-22 2023-01-22 Outpatient [facility]ario 14:43:24 14:43:24 [id number] F Robbin 2023-01-15 2023-01-15 Outpatient [facility] 17:09:12 17:09:12 [id number] F Robbin 2022-12-17 2022-12-17 Outpatient [facility] [place] 09:38:54 09:38:54 [id number] F Robbin 2022-11-06 2022-11-06 Outpatient [facility] [place] 09:49:58 09:49:58 [id number] F Robbin 2022-09-19 2022-09-19 Outpatient [facility] 09:15:37 09:15:37 [id number] F Robbin 2022-08-29 2022-08-29 Outpatient [facility] 08:58:43 08:58:43 [id number] F Ludlow 2022-07-29 2022-07-29 Outpatient [facility] 10:42:20 10:42:20 [id number] F Ludlow 2022-07-16 2022-07-16 Outpatient [facility] 11:21:55 11:21:55 [id number] F Ludlow 2022-05-29 2022-05-29 Outpatient [facility] 16:57:43 16:57:43 [id number] F Ludlow 2022-05-22 2022-05-22 Outpatient [facility] 14:27:03 14:27:03 [id number] F Ludlow 2022-05-20 2022-05-20 Outpatient [facility] 13:46:21 13:46:21 F Ludlow 2021-11-25 2021-11-25 [facility] [id number] Univers 00:00:00 00:00:00 Cely Ortiz FILM AND VIDEO GRAPHICS DESIGNER [id number] ity [facility] [id number] Arnaldo as MATERNAL [phone] Med ical & CHILD [address] [place] [address] 2021-05-02 2021-05-02 Outpatient Angel PALMA [facility] [id number] [facility] 09:45:00 09:45:00 MARÍA taylor [facility] 2021-04-09 2021-04-09 Telephone [facility] [id number] [facility] 00:00:00 00:00:00 June C FILM AND VIDEO GRAPHICS DESIGNER [id number] ity [facility] [id number] Arnaldo as MATERNAL [id number] [facility] ical & CHILD [address] [place] [address] 2021-04-04 2021-04-04 Office [facility] [id number] [facility] 08:54:02 09:36:30 Visit June C FILM AND VIDEO GRAPHICS DESIGNER [id number] ity [facility] [id number] Arnaldo as MATERNAL [phone] [facility] ical & CHILD [address] [place] [address] 2021-04-04 2021-04-04 Outpatient R FER, [facility] [id number] Univers 09:00:00 09:00:00 JUNE holden o tracee [facility] 2021-04-02 2021-04-02 [facility] [id number] Univers 08:45:00 08:45:00 JUNE salgueroy o f [facility] 2020-11-24 2020-11-24 Outpatient R [facility] [id number] Univers 13:30:00 13:30:00 ity of [facility] 2020-11-10 2020-11-10 Outpatient R [facility] [id number] Univers 13:30:00 13:30:00 ity [facility] 2020-10-20 2020-10-20 Office [facility] Resident UNIVERSIT [id number] Univers 13:42:03 14:32:12 Visit DelgadoIsiah kelley [facility] [id number] ity of [facility] [id number] [phone] [facility] [address] 2020-10-20 2020-10-20 Outpatient R [facility] [id number] Univers 13:30:00 13:30:00 ity [facility] 2020-10-20 2020-10-20 Orders Doctor JEROD [id number] Univers 00:00:00 00:00:00 Only Unassigned, JASPER [id number] ity of [place] [facility] [id number] Arnaldo as [id number] [facility] [address] Branch 2020-10-05 2020-10-05 [facility] [id number] Univers 11:00:00 11:00:00 CELY holden o [facility] 2020-10-05 2020-10-05 Office James [facility] [id number] Univers 09:48:47 10:21:23 Visit Cely Ortiz FILM AND VIDEO GRAPHICS DESIGNER [id number] ity of REGIONAL [id number] Arnaldo as MATERNAL [phone] Med ical & CHILD [address] [place] [address] 2020-09-28 2020-09-28 [facility] [id number] Univers 00:00:00 00:00:00 Outreach Reid ALISSA [id number] i ty of [place] [facility] [id number] [place]URITA[place] [id number] [place] dicil [address] [place] 2020-09-26 2020-09-26 [facility] [id number] Univers 12:55:08 13:27:43 Visit Cely Ortiz FILM AND VIDEO GRAPHICS DESIGNER [id number] ity of [facility] [id number] Arnaldo as MATERNAL [id number] [facility] & CHILD [address] [place] [address] 2020-09-26 2020-09-26 [facility] [id number] Univers 12:45:00 12:45:00 CELY salgueroy o f [facility] 2020-05-22 2020-05-22 Hospital [facility] [id number] Univers 06:29:11 23:59:00 Encounter María Richardson SPECIALTY [id number] ity of C[id number] C[place] AT [id number] [facility] [address] [place] [address] 2020-05-22 2020-05-22 [facility] [id number] Univers 00:00:00 00:00:00 MARÍA holden of [facility] 2020-04-24 2020-04-24 Telephone [facility] [id number] Univers 00:00:00 00:00:00 María Richardson FILM AND VIDEO GRAPHICS DESIGNER [id number] it y of REGIONAL [id number] Arnaldo as MATERNAL [phone] [facility] & CHILD [address] [place] [address] 2020-04-20 2020-04-20 Office [facility] [id number] Univers 10:50:54 11:42:31 Visit María Richardson FILM AND VIDEO GRAPHICS DESIGNER [id number] it y of REGIONAL [id number] Arnaldo as MATERNAL [id number] Med ical & CHILD [address] [place] [address] 2020-04-20 2020-04-20 Outpatient R LOUIE [facility] [id number] Univers 11:00:00 11:00:00 MARÍA ittaylor of [facility] 2020-04-20 2020-04-20 Orders Doctor JEROD [id number] Univers 00:00:00 00:00:00 Only Unassigned, JASPER [id number] [facility] [id number] Arnaldo as [id number] [address] 2020-01-20 2020-01-20 [facility] [id number] Univers 09:15:00 09:15:00 CELY easley [facility] 2019-11-05 2019-11-05 [facility] [id number] Univers 08:30:00 08:30:00 CELY easley [facility] 2019-09-03 2019-09-03 [facility] 1.2.840.114 [id number] Univers 09:30:42 09:54:46 Visit Cely Ortiz FILM AND VIDEO GRAPHICS DESIGNER [id number] ity [facility] [id number] Arnaldo as MATERNAL [phone] [facility] ical & CHILD [address] [place] [address] 2017-05-06 2017-05-08 [id number] [facility] 02:00:00 17:53:00 Trip CROWDER M.D. [facility] Results Test Description Test Time Test Comments Results Result Comments Source ESTRADIOL 2022-11-07 10:47:40 Test Item Value Reference Range Interpretation Comme nts ESTRADIOL (test code = 37.4 PG/ML SEE BELOW EXPECTED VALUES FOR ESTRADIOL 2505) FOR FEMALES >=1 8 YEARS FOLLICULAR . . . . . . . . . . . . . PG/ML 12.4-233. 0 OVULATION. . . . . . . . . . . . . . PG/ML 41.0-398.0 LUTEAL PHASE . . . . . . . . . . . . PG/ML 22.3-341. 0 POSTMENOPAUSAL SUPPLEMENTED/NO N-SUPP . PG/ML <138.0/<20.0 NO TE: TO DETERMINE NORMAL VS. SUBNORMAL E STRADIOL IN POSTMENOPAUSAL FEMALES, CONSIDER ULTRASENSITIVE ESTRADIOL ([facility] ORDER CODE 5678). MET HODOLOGY IS SALVATORE JACINTA ELECTROCHEMILUM INESCENT IMMUNOASSAY WITH A LIMIT OF DETECTION OF 17 PG/ML. TSH, THIRD [id number] 10:47:40 Test Item Value Reference Range Interpretation Comments TSH, THIRD GENERATION (test code 1.490 UIU/ML 0.400-4.100 = 2821) FSH + LH [id number] 10:47:40 Test Item Value Reference Range Interpretation Comments FOLLICLE STIM HORMONE 7.9 IU/L SEE BELOW EXPECTED VALUES (test code = 2700) FOR FSH F OR FEMALES >17 YEARS F OLLICULAR 3.5-12.5 IU/L M ID-CYCLE PEAK 4.7-21.5 I U/L LUTEAL PHASE 1 .7-7.7 IU/L POSTMENOPA USAL 25.8-134.8 IU/L LUTEINIZING HORMONE 5.4 IU/L SEE BELOW EXPECTED VALUES (test code = 2776) FOR LH FO R FEMALES >17 YEARS M ALES FEMALES >=18 YE ARS 1.8-8.6 IU/L FO LLICULAR 2.4-12.6 IU/L M ID-CYCLE PEAK 14.0-95.6 IU/L LUTEAL PHASE 1 .0-11.4 IU/L POSTMENOPA USAL 7.7-58.5 IU/L * [facility] has important p athology staff changes e ffective 09/11/2022. New pathology staff will provide uninter rupted, excellent patie nt care and clinical consultation. S ee URL: [email or web address]. UNLESS OTHERWISE INDICATED, ALL TESTING PERFORMED AT INICAL PATHOLOGY LABOR [facility] [address] [place] [address] 1891 4 LABORATORY DIRE CTOR: ALISSA ANDREWS M.D. CLIA NUMBER [id number] [facility] [place] [id number] HEMOGLOBIN [id number] 03:29:36 Test Item Value Reference Range Interpretation Comments HEMOGLOBIN A1c (test code 6.0 % 4.2-5.6 H * [facility] has important = 61216) pathology staff changes effective 09/11. New ro gy staff will provide uninterrupted, excellent patie nt care and clinical consultation. S ee URL: [email or web address]. UNLESS OTHERWISE INDIC ATED, ALL TESTING PER FORMED AT [facility], [facility]. [address] [place] [address] CLIA: [id number], CAP: [id number] TSH, THIRD [id number] 06:19:50 Test Item Value Reference Range Interpretation Comments TSH, THIRD 1.070 UIU/ML 0.400-4.100 UNLESS OTHERWI SE GENERATION (test INDICATED, ALL TESTING code = 2821) PERFORMED [facility] PATHOLOGY [facility], [facility]. [address] [place] [address] [facility] DIRECTOR: MANSI IGNACIO M.D. CLIA NUMBER [id number] CAP ACCREDITATION N O. [id number] COMPREHENSIVE METABOLIC [id number] 03:27:14 Test Item Value Reference Range Interpretation Comments GLUCOSE (test code = 91 MG/DL 70-99 2216) BUN (test code = 14 MG/DL 6-20 2207) CREATININE (test 0.79 MG/DL 0.60-1.30 code = 2214) eGFR (2020 CKD-EPI) 94 ML/MIN/1.73 >60 (test code = 38358) CALC BUN/CREAT (test 18 RATIO 6-28 code = 2235) SODIUM (test code = 138 MEQ/L 651-348 8813) POTASSIUM (test code 4.4 MEQ/L 3.5-5.4 = 2227) CHLORIDE (test code 101 MEQ/L 95-107 = 2215) CARBON DIOXIDE (test 26 MEQ/L 19-31 code = 2206) CALCIUM (test code = 9.9 MG/DL 8.5-10.5 2208) PROTEIN, TOTAL (test 7.4 G/DL 6.1-8.3 code = 2229) ALBUMIN (test code = 4.3 G/DL 3.5-5.2 2200) CALC GLOBULIN (test 3.1 G/DL 1.9-3.7 code = 2240) CALC A/G RATIO (test 1.4 RATIO 1.0-2.6 code = 2234) BILIRUBIN, TOTAL 0.3 MG/DL See_Comment [Automated message] (test code = 2207) The syste m which generated this result transmit mulu reference range : <=1.2. The refe rence range was not u sed to interpret th is result as normal/abnormal . ALKALINE PHOSPHATASE 74 U/L 40-116 (test code = 220) AST (test code = 21 U/L 9-40 2217) ALT (test code = 29 U/L 5-40 2218) LIPID [id number] 03:27:14 Test Item Value Reference Range Interpretation Comments CHOLESTEROL (test 223 MG/DL <200 H code = 2210) TRIGLYCERIDES (test 92 MG/DL <150 code = 2232) HDL CHOLESTEROL (test 71 MG/DL >39 code = 2220) CALC LDL CHOL (test 132 MG/DL <100 H NOTE: C ALCULATED LDL code = 2237) IS BASED ON JOANN-BYERS METHOD WHICHINCLUDES ADJUSTABLE TRIGLYCERIDE:VL DL CHOLESTEROL RAT IO.THIS FACTOR VARIES B Y MEASURED TRIGLY CERIDE AND NON-HDLCHOL ESTEROL CONCENTRATIONS WITH INCREASED CALCU LATED LDL SEENIN HIGH ER TRIGLYCERIDE OR LOWER NON-HDL SPECIME NS. FOR MOREINFORMATION , SEE CLIENT ANNOUNCE MENT AT [email or web address] [email or web address] LDL/HDL 1.86 RATIO <3.22 (test code = 2238) CBC W/AUTO DIFF WITH [id number] 01:53:40 Test Item Value Reference Range Interpretation Comments WBC (test code = 5.8 K/UL 3.5-11.0 1001) RBC (test code = 4.46 M/UL 3.80-5.40 1002) HEMOGLOBIN (test code 12.2 G/DL 11.5-15.5 = 1003) HEMATOCRIT (test code 36.0 % 34.0-45.0 = 1004) MCV (test code = 80.7 fL 80.0-99.0 1005) MCH (test code = 27.4 PG 25.0-33.0 1006) MCHC (test code = 33.9 G/DL 31.0-36.0 1007) RDW (test code = 14.3 % 11.5-15.0 1038) NEUTROPHILS (test 63.1 % code = 1008) LYMPHOCYTES (test 28.8 % code = 1010) MONOCYTES (test code 5.7 % = 1011) EOSINOPHILS (test 1.9 % code = 1012) BASOPHILS (test code 0.3 % = 1013) IMMATURE GRANULOCYTES 0.2 % (test code = 1036) NUCLEATED RBCS (test 0.0 /100 WBC'S See_Comment [Aut omated code = 1065) message] The sy stem which generated this result transmitted reference range : 0.0. The refere nce range was not u sed to interpret th is result as normal/abnormal . PLATELET COUNT (test 343 K/UL 130-400 code = 1015) ABSOLUTE NEUTROPHILS 3.66 K/UL 1.50-7.50 (test code = 1066) ABSOLUTE LYMPHOCYTES 1.67 K/UL 1.00-4.00 (test code = 1067) ABSOLUTE MONOCYTES 0.33 K/UL 0.20-1.00 (test code = 1068) ABSOLUTE EOSINOPHILS 0.11 K/UL 0.00-0.50 (test code = 1040) ABSOLUTE BASOPHILS 0.02 K/UL 0.00-0.20 (test code = 1069) ABS IMMATURE 0.01 K/UL 0.00-0.10 GRANULOCYTES (test code = 1020) ABS NUCLEATED RBCS 0.00 K/UL 0.00-0.11 (test code = 29277) CT/NG, NAAT, [id number] 15:58:55 Test Item Value Reference Range Interpretation Comments GONORRHEA, NAAT NEGATIVE NEGATIVE IMPORTA NT NOTICE: SEE (test code = [place] [address]) [email or web address] Note: Assay methodology is nucleic acid amplification b y sport psychologist m ediated amplification ( TMA) utilizing the A ptima Combo 2 Assay. CHLAMYDIA, NAAT NEGATIVE NEGATIVE IMPORTA NT NOTICE: SEE (test code = [place] [address]) [email or web address] [email or web address] Note: Assay methodology is nucleic acid amplification b y sport psychologist m ediated amplification ( TMA) utilizing the A ptima Combo 2 Assay. PAP TEST, THINPREP, [id number] 15:46:34 Test Item Value Reference Range Interpretation Comments SOURCE: (test Cervical code = 8001) SLIDES: (test 1 code = 8011) LMP: (test code 07/14/2021 = 8021) SPECIMEN (NOTE) Satisfactory f or ADEQUACY: (test evaluation. code = 16962) Endocervical cells/transform ation zone component not identified. INTERPRETATION: NILM/NO EPITH. (test code = ABNORMALITY;SEE 80582) BELOW -------- - NEGATIVE FOR INTRAEPITHELIAL LESION OR MALIGNANCY ( NILM) -------- -------- -------- ---- OTHER COMMENTS: (NOTE) Shift in fredrick ra (test code = suggestive of b acterial 8081) vaginosis. GROOVER OPERATOR Yana M : (test code = [place], [place] 8101) (ASCP) LOCATION: (test (NOTE) Specimens pr ocessed and code = 70357) interpreted at Clinical Pathology[address] [address], Phone: , CLIA: [id number] CPT: (test code (NOTE) 91083 UNLESS OTHERWISE = 8140) INDICATED, COMP UTER AIDED AND CYTOTECHNOLOGIS T SCREENING PERFO RMED. The Pap test is a screening test with an inherent, but l ow probability of error. Your patient sh ould be reminded to con sult you immediately if she experiences any suspicious sign s or symptoms, regar dless of her Pap test re sult. An alternate repor t format containing imag es or consolidated pr ior Pap history is avai lable as applicable. UNL ESS OTHERWISE INDIC ATED, ALL TESTING PER FORMED ATCLINICAL PATH [facility], [facility] [place]. [address] [place] [address] LABORATOR Y DIRECTOR: MANSI IGNACIO M.D. NETTAIA NUMBER [id number] CAP ACCREDITATION N O. [id number] VAGINAL PATHOGENS DNA [id number] 14:04:03 Test Item Value Reference Range Interpretation Comments AMARA SPECIES (test NEGATIVE NEGATIVE code = ) G. VAGINALIS (test POSITIVE NEGATIVE A code = ) T. VAGINALIS (test NEGATIVE NEGATIVE UNLESS O THERWISE code = ) INDICATED, ALL TESTING PERFORMED [facility] NICWV PATHOLOGY [facility] ED, [facility]. [address] [place], [place] [address] LABORATORY DIRE CTOR: Irina SHOEMAKERIA NUMBER [id number] [place] [id number] HIV 1/2 4TH GEN, RFLX [id number] 03:43:31 Test Item Value Reference Range Interpretation Comments HIV 1/2 4TH GEN, RFLX CONF (test NON-REACTIVE NON-REACTIVE code = 3514) HEPATITIS PANEL, [id number] 03:43:31 Test Item Value Reference Range Interpretation Comments HEPATITIS A IgM (test NON-REACTIVE NON-REACTIVE code = 98663) HEPATITIS B CORE IgM NON-REACTIVE NON-REACTIVE (test code = 4644) HEPATITIS B SURF AG NON-REACTIVE NON-REACTIVE (test code = 2739) HEPATITIS C ANTIBODY NON-REACTIVE NON-REACTIVE (test code = 4675) INTERPRETATION (NOTE) Hepatitis A HEPATITIS A: (test code sero logy shows no = 2552) evidence of acu te hepatitis A. INTERPRETATION (NOTE) Hepatitis B HEPATITIS B: (test code sero logy shows no = 46951) evidence of acu te hepatitis B and no indication of exposure to hepatitis B vir us in the previous joseph eight months. INTERPRETATION (NOTE) Hepatitis C HEPATITIS C: (test code sero logy shows no = 57806) evidence of exposure to hepatitisC viru s at this time. I t can take up to 12 months after exposure tothe hepatitis C vir us for antibodies to become detectab le in the blood in certain patient s. [id number] 03:39:24 Test Item Value Reference Range Interpretation Comments RPR RESULT (test code = NON-REACTIVE NON-REACTIVE 3501) RPR TITER (test code = 3500) NOT INDIC. TITER NOT INDIC. RPR, [id number] 16:41:00 Test Item Value Reference Range Interpretation Comments RPR (test code = RPR) Non-Reactive Non-Reactive N Thyroid Stimulating Hormone (TSH)2017-05-06 06:59:00 Test Item Value Reference Range Interpretation Comments TSH (test code = TSH) 1.75 mIU/mL 0.270-4.200 N Lipid [id number] 06:51:00 Test Item Value Reference Range Interpretation Comments Cholesterol (test 192 mg/dL 0-200 N code = CHOL) Triglycerides (test 88 mg/dL 9-200 N code = TRIG) HDL (test code = 66 mg/dL 50-60 H HDL) Chol/HDL (test code 2.9 Ratio 0.0-4.4 N = CHOLPHDL) LDL, Calculated 108 0-130 N (NOTE)RISK O F HEART (test code = LDLC) DISEASEPu blished by [place] Heart AssociationAnal yte Optimal Boderli ne Increased RiskC HOL <200 200-239 >240TRI G <150 150-199 >200HDL Male: >60 <40HDL Fema le: >60 <50LDL <100 13 0-159 >160LDL NEAR OP TIMAL IS 100-129 VLDL (test code = 18 mg/dL 5-40 N VLDL) LDL/HDL (test code = 2 LDLPHDL) Notes Date/Time Note Provider Source 2017-05-28 21:09:15-00:00 [facility] Discharge Summary PATIENT NAME: SHANI PALMA PHYSICIAN: Daphnie hernández MD Admitted: MR NUMBER: [id number] DISCHARGED: 05/08/2017 06:5 3:00 DATE OF ADMISSION: 05/06/2017 DATE OF DISCHARGE: 05/08/2017 ATTENDING PHYSICIAN: Ngoc Mcgill MD REASON FOR ADMISSION: Ms. Shani Palma is a 41-year-old female wit h a past psychiatric history of depression, suicide attempt and polysubstance use, including history of cocaine and current use of alcohol and meth. She is presenting for suicidal ideation with a plan to shoot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 history of manic symptoms. No AVH. No delusions. It is positive for generalized anxiety as she is worried about her finances where she is going to live when she leaves, her children, and other people's approval. DIAGNOSTIC IMPRESSION: AXIS I: Major depressive disorder, (versus subst ance-induced mood disorder), polysubstance use disorder (ethanol and methamph etamines), and anxiety disorder, unspecified. AXIS II: None. AXIS III: Alcohol withdrawal, history of 4 spont aneous vaginal deliveries. 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 PLAN: Ms. Shani Palma will be admitted to Dr. Mk nieves's service on [facility] Inpatient Unit and placed on suicide, elopement, seizure and standard PICU precautions and unit restrictions. She will be s tarted on Prozac 20 mg p.o. daily for depressed mood, Ativan 2 mg p.o. b.i.d . for alcohol withdrawal, thiamine and a multivitamin for her alcohol use disorder, and trazodone 50 mg p.o. at bedtime p.r.n. for sleep, and Vistaril 5 0 mg p.o. every 6 hours p.r.n. for anxiety. She will be offered a nicoti ne patch for nicotine replacement. Internal Medicine has been consulte d for current medical needs. Patient Name: SHANI PALMA dinner last night. ATTENTION: Intact. Able to spell the word "world " backwards. ABSTRACTION: Intact, able to identify abstract s imilarities between sweater and jacket. FUND OF KNOWLEDGE: Appropriate per education lev el able to name 5 cities. GAIT: Normal. LABORATORY DATA: TSH 1.75, normal. Fasting lipid panel within nor mal limits except for HDL of 66, high. BMP was within normal limits. CBC with in normal limits. UDS positive for amphetamines. ASSESSMENT: Ms. Shani Palma is a 41-year-old Am erican female with a past psychiatric history of depression, polysubstance use, and one suicide attempt, presenting for SI with a plan to shoot herself without intent in the context of drug intoxication, being off any psych medications and psychosocial stressors. On initial interview, she does meet steven wilson for MDD stating that she is positive for depressed mood, anhedonia, h ypersomnia, hopelessness, feelings of guilt, worthlessness, crying spells, and suicidal ideat ion with a plan; however, she denies any change in energy, concentration, or a ppetite. Psych review of systems is significant for no ma gt symptoms and no history of manic symptoms. No AVH. No delusions. It is positive for generalized anxiety as she is worried about her finances where she is going to live when she leaves, her children, and other people's approval. DIAGNOSTIC IMPRESSION: AXIS I: Major depressive disorder, (versus subst ance-induced mood disorder), polysubstance use disorder (ethanol and methamph etamines), and anxiety disorder, unspecified. AXIS II: None. AXIS III: Alcohol withdrawal, history of 4 spont aneous vaginal deliveries. 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 PLAN: Ms. Shani Palma will be admitted to Dr. Mk nieves's service on [facility] Inpatient Unit and placed on suicide, elopement, seizure and standard PICU precautions and unit restrictions. She will be s tarted on Prozac 20 mg p.o. daily for depressed mood, Ativan 2 mg p.o. b.i.d . for alcohol withdrawal, thiamine and a multivitamin for her alcohol use disorder, and trazodone 50 mg p.o. at bedtime p.r.n. for sleep, and Vistaril 5 0 mg p.o. every 6 hours p.r.n. for anxiety. She will be offered a nicoti ne patch for nicotine replacement. Internal Medicine has been consulte d for current medical needs. Patient Name: SHANI PALMA She will be monitored daily while on the unit. We plan to discharge her to [facility] for home with friends. She has been encouraged to attend all group therapy sessions to participate in her josef atment and to bring any concerns to the attention of the treatment team. MD Ngoc Marx MD Date Dictated: 05/07/2017 Date 05/07/2017 Transcribed: LIZANDRO/KEYSHA/BALDOMERO cc:MD Daphnie Marrero Electronically Authenticated and Edited by: Daphnie Herring MD On 05/08/2017 05:22 AM CDT Patient Name: SHANI PALMA She will be monitored daily while on the unit. We plan to discharge her to [facility] for home with friends. She has been encouraged to attend all group therapy sessions to participate in her josef atment and to bring any concerns to the attention of the treatment team. MD Ngoc Marx MD Date Dictated: 05/07/2017 Date 05/07/2017 Transcribed: SHERRI/BALDOMERO cc:MD Daphnie Marrero Electronically Authenticated and Edited by: Daphnie Herring MD On 05/08/2017 05:22 AM CDT Electronically Authenticated by: Ngoc Mcgill MD On 05/09/2017 07:08 AM CDT
[2023-02-18 13:01] LABS: Absolute Lymphocytes (CBC) 1.6 K/uL (0.7-4.9); Hematocrit 36.6 % (36.0-45.0); MCV 79.9 fL (80-100); MPV 6.8 fL (7.6-11.3); Platelets 370 thou/uL (152-406); RBC Red Blood Cell Count 4.58 M/uL (3.86-4.86)
[2023-02-18 13:04] LABS: Protime INR 1.12
[2023-02-18 13:24] LABS: ALT/SGPT 23 U/L (13-56); AST/SGOT 14 U/L (15-37); Albumin 3.3 g/dL (3.4-5.0); Alkaline Phosphatase 69 U/L (45-117); BUN Blood Urea Nitrogen 15 mg/dL (7-18); Bicarbonate 27 mEq/L (21-32); Bilirubin Direct 0.2 mg/dL (0-0.2); Bilirubin Indirect, Calculated 0.4 mg/dL (0.2-0.8); Bilirubin Total 0.6 mg/dL (0.2-1.0); Glomerular Filtration Rate 55 ml/min (=/>90); Glucose Level 175 mg/dL (74-106); Magnesium 1.4 mg/dL (1.6-2.4); NT PRO-BNP 6 pg/mL (<125); Protein, Total 7.7 g/dL (6.4-8.2); Sodium Level 134 mEq/L (136-145)
[2023-02-18 13:27] LABS: Troponin High Sensitivity < 3.0 pg/mL (<58.9)
[2023-02-18 13:28] LABS: Potassium 2.5 mEq/L (3.5-5.1)
[2023-02-18] MEDS ORDERED: KCL 20 MEQ/100 mL IVPB 100 ML IV ONE (13:49)
[2023-02-18] MEDS ORDERED: MAGNESIUM SULFATE 1 gm IVPB 1 GM/100 ML BAG IV ONE (13:49)
[2023-02-18] MEDS ORDERED: NA CHLORIDE 0.9% 1,000 ML ONE (13:49)
[2023-02-18] MEDS ORDERED: POTASSIUM 25 MEQ EFFERV TAB ONE (13:49)
--- NOTE | 2023-02-18 13:55 | RAD REPORT ---
EXAM DESCRIPTION: - CP - 02/18/2023 1:40 pm CLINICAL HISTORY: near syncope COMPARISON: No comparisons TECHNIQUE: Real-time sonographic grayscale, color duplex, and spectral wave Doppler evaluation of tania th carotid systems was performed. FINDINGS: Normal high resistance waveforms are noted in both external carotid arteries. The common c arotid arteries and internal carotid arteries show normal low resistance waveforms. No significant plaque formation is seen on the right. Mild hyperechoic smooth noncalcified plaque radha ng the proximal left ICA. Peak systolic velocity less than 125 cm/ sec bilaterally. ICA/CCA peak sys tolic ratios less than 2.0 bilaterally. Antegrade flow seen in both vertebral arteries. IMPRESSION: No significant atherosclerotic changes or hemodynamically significant stenosis noted on the right. Mild atherosclerotic plaque formation along the proximal left ICA with less than 50% stenosis. Evaluation of carotid artery stenosis, if any, is reported based on consensus recommendations of the Society of Radiologists in Ultrasound (Carroll et al., Radiology, 2003)
--- NOTE | 2023-02-18 14:27 | RAD REPORT ---
EXAM DESCRIPTION: Brad Single View02/18/2023 2:18 pm CLINICAL HISTORY: near syncope COMPARISON: No comparisons TECHNIQUE: Portable AP view of the chest. FINDINGS: The lungs are clear. No pneumothorax or effusion. The cardiomediastinal contours are unrem arkable. IMPRESSION: No acute cardiopulmonary process.
--- NOTE | 2023-02-18 14:37 | EDPHYS ---
Physician Documentation [facility] Name: Traci Mondragon Age: 47 yrs Sex: Female : 1975 Arrival Date: 02/18/2023 Time: 12:42 Bed 13 Private MD: ED Physician Davidson Reyna HPI: 02/18 13:25 This 47 yrs old Black Female presents to ER via EMS with complaints of Dizziness. snw 13:25 The patient has experienced near-syncope, almost passed out, felt dizzy, felt faint, snw felt generally weak. Onset: The symptoms/episode began/occurred suddenly, just prior to arrival, and became persistent. Context: the episode(s) was witnessed, by EMS personnel, occurred at a store, occurred while the patient was standing, Just prior to the episode the patient experienced diaphoresis, dizziness, lightheadedness, nausea. Associated signs and symptoms: The patient has no apparent associated signs or symptoms. Current symptoms: Currently, the patient is not experiencing any symptoms. The patient has experienced similar episodes in the past, Here with hx of same s/s about three weeks ago per report. Pt states she had to quit her job because she has not been able to remain standing for any length of time secondary to dizziness and near syncope. Historical: - Allergies: 12:58 No Known Allergies; bp - Home Meds: 12:58 Victoza 2-Alessio subcutaneous [Active]; Norvasc Oral [Active]; Glucophage Oral [Active]; bp Prozac Oral [Active]; atorvastatin oral [Active]; - PMHx: 12:58 drug abuse; Hypertensive disorder; Diabetes mellitus; bp - PSHx: 12:58 tubal ligation; bp - Immunization history:: Adult Immunizations up to date. - Social history:: Smoking status: Patient denies any tobacco usage or history of. ROS: 13:23 Eyes: Negative for injury, pain, redness, and discharge, ENT: Negative for injury, snw pain, and discharge, Neck: Negative for injury, pain, and swelling, Cardiovascular: Negative for chest pain, palpitations, and edema, Respiratory: Negative for shortness of breath, cough, wheezing, and pleuritic chest pain, Abdomen/GI: Negative for abdominal pain, nausea, vomiting, diarrhea, and constipation, Back: Negative for injury and pain, : Negative for injury, bleeding, discharge, and swelling, MS/Extremity: Negative for injury and deformity, Skin: Negative for injury, rash, and discoloration, Psych: Negative for depression, anxiety, suicide ideation, homicidal ideation, and hallucinations. 13:23 Constitutional: Positive for fatigue, malaise. 13:23 Neuro: Positive for dizziness, near syncope, weakness. Exam: 13:23 Constitutional: This is a well developed, well nourished patient who is awake, alert, snw and in no acute distress. Head/Face: Normocephalic, atraumatic. Eyes: Pupils equal round and reactive to light, extra-ocular motions intact. Lids and lashes normal. Conjunctiva and sclera are non-icteric and not injected. Cornea within normal limits. Periorbital areas with no swelling, redness, or edema. ENT: Nares patent. No nasal discharge, no septal abnormalities noted. Tympanic membranes are normal and external auditory canals are clear. Oropharynx with no redness, swelling, or masses, exudates, or evidence of obstruction, uvula midline. Mucous membranes moist. Neck: Trachea midline, no thyromegaly or masses palpated, and no cervical lymphadenopathy. Supple, full range of motion without nuchal rigidity, or vertebral point tenderness. No Meningismus. Chest/axilla: Normal chest wall appearance and motion. Nontender with no deformity. No lesions are appreciated. Cardiovascular: Regular rate and rhythm with a normal S1 and S2. No gallops, murmurs, or rubs. Normal PMI, no JVD. No pulse deficits. Respiratory: Lungs have equal breath sounds bilaterally, clear to auscultation and percussion. No rales, rhonchi or wheezes noted. No increased work of breathing, no retractions or nasal flaring. Abdomen/GI: Soft, non-tender, with normal bowel sounds. No distension or tympany. No guarding or rebound. No evidence of tenderness throughout. Back: No spinal tenderness. No costovertebral tenderness. Full range of motion. Skin: Warm, dry with normal turgor. Normal color with no rashes, no lesions, and no evidence of cellulitis. MS/ Extremity: Pulses equal, no cyanosis. Neurovascular intact. Full, normal range of motion. Psych: Awake, alert, with orientation to person, place and time. Behavior, mood, and affect are within normal limits. 13:23 Neuro: Orientation: is normal, Mentation: is normal, Memory: is normal, Cerebellar function: is grossly normal, Motor: is normal, Gait: not tested. seizure activity, is not displayed by the patient. Vital Signs: 12:57 BP 130 / 80; Pulse 110; Resp 20; Temp 98.6; Pulse Ox 100% ; bp 14:01 BP 119 / 86; Pulse 96; Resp 18; Pulse Ox 97% on R/A; sg5 14:59 BP 122 / 87; Pulse 80; Resp 18; Pulse Ox 100% ; sg5 15:29 BP 122 / 94; Pulse 89; Resp 16; Pulse Ox 96% on R/A; sg5 16:34 BP 118 / 88; Pulse 88; Resp 17 S; Pulse Ox 100% on R/A; kc6 17:58 BP 125 / 87 Supine; Pulse 87; sm8 17:58 BP 130 / 91 Sitting; Pulse 93; sm8 17:58 BP 128 / 104 Standing; Pulse 116; sm8 MDM: 12:47 Patient medically screened. snw 13:23 Differential Diagnosis: cardiac arrhythmia, drug effect, emotional response, idiopathic snw syncope, vasovagal episode. Data reviewed: vital signs, nurses notes, EMS record. Historians other than the Patient: EMS: [place]. Counseling: I had a detailed discussion with the patient and/or guardian regarding: the historical points, exam findings, and any diagnostic results supporting the discharge/admit diagnosis, the presence of at least one elevated blood pressure reading (>120/80) during this emergency department visit, lab results, radiology results, the need for outpatient follow up, to return to the emergency department if symptoms worsen or persist or if there are any questions or concerns that arise at home. Special discussion: I have referred the patient to see his PCP for further evaluation of high blood pressure. Based on the history and exam findings, there is no indication for further emergent testing or inpatient evaluation. I discussed with the patient/guardian the need to see the neurologist for further evaluation of the symptoms. I discussed with the patient/guardian the need to see the primary care provider for further evaluation of the symptoms. 14:36 Management of patient was discussed with the following: Hospitalist: Dr. Barb celaya snw kindly admit. 02/18 12:48 Order name: Basic Metabolic Panel; Complete Time: 13:29 snw 02/18 12:48 Order name: CBC with Diff; Complete Time: 13:04 snw 02/18 12:48 Order name: LFT's; Complete Time: 13:29 snw 02/18 12:48 Order name: Magnesium; Complete Time: 13:29 snw 02/18 12:48 Order name: NT PRO-BNP; Complete Time: 13:29 snw 02/18 12:48 Order name: PT-INR; Complete Time: 13:06 snw 02/18 12:48 Order name: Troponin HS; Complete Time: 13:29 snw 02/18 12:50 Order name: Urine W/Microscopic (UAM); Complete Time: 16:30 snw 02/18 12:50 Order name: UDS; Complete Time: 16:18 snw 02/18 16:40 Order name: Glucose, Ancillary Testing; Complete Time: 16:41 EDMS 02/18 12:48 Order name: XRAY Chest (1 view); Complete Time: 14:37 snw 02/18 12:50 Order name: US Carotid Artery Bilateral; Complete Time: 14:22 snw 02/18 15:35 Order name: Brain Wo Cont EDMS 02/18 15:35 Order name: Echo with Doppler EDMS 02/18 15:35 Order name: ERT ORTHOSTATIC V/S EDMS 02/18 15:35 Order name: ERT ORTHOSTATIC V/S EDMS 02/18 15:35 Order name: ERT ORTHOSTATIC V/S EDMS 02/18 15:35 Order name: ERT ORTHOSTATIC V/S EDMS 02/18 15:35 Order name: ERT ORTHOSTATIC V/S EDMS 02/18 12:48 Order name: EKG; Complete Time: 12:49 snw 02/18 12:48 Order name: Cardiac monitoring; Complete Time: 13:03 snw 02/18 12:48 Order name: EKG - Nurse/Tech; Complete Time: 13:03 snw 02/18 12:48 Order name: IV Saline Lock; Complete Time: 13:03 snw 02/18 12:48 Order name: Labs collected and sent; Complete Time: 13:04 snw 02/18 12:48 Order name: O2 Per Protocol; Complete Time: 13:04 snw 02/18 12:48 Order name: O2 Sat Monitoring; Complete Time: 13:04 snw 02/18 12:50 Order name: Orthostatics; Complete Time: 17:46 snw EC:56 Rate is 84 beats/min. Rhythm is regular. QRS [place] is Normal. ME interval is normal. QRS snw interval is normal. QT interval is prolonged. Q waves are Present in lead III. Clinical impression: NSR w/ Non-specific ST/T Changes and prolonged QT. Administered Medications: 14:01 Drug: Potassium PO Effervescent Tablet 50 mEq Route: PO; sg5 16:35 Follow up: Response: No adverse reaction kc6 14:01 Drug: Magnesium Sulfate IVPB 1 grams Route: IVPB; Infused Over: 1 hrs; Site: right sg5 antecubital; 14:24 Follow up: IV Status: Completed infusion; IV Intake: 100ml sg5 14:23 Drug: Potassium Chloride IV 20 mEq Route: IV; Rate: calculated rate; Site: right sg5 antecubital; 16:35 Follow up: Response: No adverse reaction; IV Status: Completed infusion kc6 Disposition Summary: 02/18/23 14:36 Hospitalization Ordered Hospitalization Status: Observation snw Provider: Leslie Day snw Location: Telemetry/MedSurg (observation) snw Condition: Stable snw Problem: an acute exacerbation snw Symptoms: are unchanged snw Bed/Room Type: Standard snw Room Assignment: 225(02/18/23 16:48) bd Diagnosis - Hypokalemia snw - Syncope Near snw Forms: - Medication Reconciliation Form snw - SBAR form snw Addendum: 02/20/2023 10:35 Co-signature as Attending Physician, Davidson Reyna MD I reviewed the patient's care r n provided by the Advanced Practice Provider and agree with the diagnosis and treatment plan. Signatures: Dispatcher [employer] EDMS Azeb Rocha Shelly, CARDIOLOGY ASSOCIATE-C CARDIOLOGY ASSOCIATE-Csnw Davidson Reyna MD MD rn Peltier, Brian, RN RN Justina Fonseca RN RN sg5 Chloe Pascal RN kc6 Corrections: (The following items were deleted from the chart) 02/18 16:48 14:36 snw bd
--- NOTE | 2023-02-18 14:37 | ER ---
Nurse's Notes [facility] Name: Traci Mondragon Age: 47 yrs Sex: Female : 1975 Arrival Date: 02/18/2023 Time: 12:42 Bed 13 Private MD: Diagnosis: Hypokalemia;Syncope Near Presentation: 02/18 12:57 Chief complaint: EMS states: DIZZINESS WHILE AMBULATING AT [facility]. Coronavirus screen: At bp this time, the client does not indicate any symptoms associated with coronavirus-19. Ebola Screen: No symptoms or risks identified at this time. Initial Sepsis Screen: Does the patient meet any 2 criteria? HR > 90 bpm. No. Patient's initial sepsis screen is negative. Does the patient have a suspected source of infection? No. Patient's initial sepsis screen is negative. Risk Assessment: Do you want to hurt yourself or someone else? Patient reports no desire to harm self or others. Onset of symptoms was February 18, 2023. Care prior to arrival: IV initiated. 20 GA, in the right antecubital area, Glucose check: 144. 12:57 Method Of Arrival: EMS: [facility] bp 12:57 Acuity: THIAGO 3 bp Triage Assessment: 12:58 General: Appears in no apparent distress. Behavior is cooperative, appropriate for age, bp anxious. Pain: Denies pain. EENT: No deficits noted. Neuro: Reports dizziness. Cardiovascular: No deficits noted. Respiratory: No deficits noted. GI: No signs and/or symptoms were reported involving the gastrointestinal system. : No signs and/or symptoms were reported regarding the genitourinary system. Derm: No deficits noted. Musculoskeletal: No deficits noted. Historical: - Allergies: 12:58 No Known Allergies; bp - Home Meds: 12:58 Victoza 2-Alessio subcutaneous [Active]; Norvasc Oral [Active]; Glucophage Oral [Active]; bp Prozac Oral [Active]; atorvastatin oral [Active]; - PMHx: 12:58 drug abuse; Hypertensive disorder; Diabetes mellitus; bp - PSHx: 12:58 tubal ligation; bp - Immunization history:: Adult Immunizations up to date. - Social history:: Smoking status: Patient denies any tobacco usage or history of. Screenin:02 [facility] ED Fall Risk Assessment (Adult) History of falling in the last 3 months, bp including since admission No falls in past 3 months (0 pts). Abuse screen: Denies threats or abuse. Denies injuries from another. Nutritional screening: No deficits noted. Tuberculosis screening: No symptoms or risk factors identified. Assessment: 13:02 General: SEE TRIAGE NOTE. bp 13:34 General: Appears in no apparent distress. comfortable, Behavior is calm, cooperative, kc6 appropriate for age. Pain: Denies pain. Neuro: Cody Agitation-Sedation Scale (RASS): 0 - Alert and Calm Level of Consciousness is awake, alert, obeys commands, Oriented to person, place, time, situation, Appropriate for age Reports dizziness. Cardiovascular: Capillary refill < 3 seconds. Respiratory: Airway is patent Trachea midline Respiratory effort is even, unlabored, Respiratory pattern is regular, symmetrical. GI: No signs and/or symptoms were reported involving the gastrointestinal system. : No signs and/or symptoms were reported regarding the genitourinary system. EENT: No signs and/or symptoms were reported regarding the EENT system. Derm: No signs and/or symptoms reported regarding the dermatologic system. Skin is intact, is healthy with good turgor, Skin is pink, warm \T\ dry. Musculoskeletal: No signs and/or symptoms reported regarding the musculoskeletal system. Circulation, motion, and sensation intact. Capillary refill < 3 seconds, Range of motion: intact in all extremities. 14:34 Reassessment: Patient appears in no apparent distress at this time. No changes from kc6 previously documented assessment. Patient and/or family updated on plan of care and expected duration. Pain level reassessed. Patient is alert, oriented x 3, equal unlabored respirations, skin warm/dry/pink. 15:34 Reassessment: Patient appears in no apparent distress at this time. No changes from kc6 previously documented assessment. Patient and/or family updated on plan of care and expected duration. Pain level reassessed. Patient is alert, oriented x 3, equal unlabored respirations, skin warm/dry/pink. 16:34 Reassessment: Patient appears in no apparent distress at this time. No changes from kc6 previously documented assessment. Patient and/or family updated on plan of care and expected duration. Pain level reassessed. Patient is alert, oriented x 3, equal unlabored respirations, skin warm/dry/pink. 17:23 Reassessment: attempted to call report to nurse Joya. unavailable at this time. kc6 17:33 Reassessment: Patient appears in no apparent distress at this time. No changes from kc6 previously documented assessment. Patient and/or family updated on plan of care and expected duration. Pain level reassessed. Patient is alert, oriented x 3, equal unlabored respirations, skin warm/dry/pink. Vital Signs: 12:57 BP 130 / 80; Pulse 110; Resp 20; Temp 98.6; Pulse Ox 100% ; bp 14:01 BP 119 / 86; Pulse 96; Resp 18; Pulse Ox 97% on R/A; sg5 14:59 BP 122 / 87; Pulse 80; Resp 18; Pulse Ox 100% ; sg5 15:29 BP 122 / 94; Pulse 89; Resp 16; Pulse Ox 96% on R/A; sg5 16:34 BP 118 / 88; Pulse 88; Resp 17 S; Pulse Ox 100% on R/A; kc6 17:58 BP 125 / 87 Supine; Pulse 87; sm8 17:58 BP 130 / 91 Sitting; Pulse 93; sm8 17:58 BP 128 / 104 Standing; Pulse 116; sm8 ED Course: 12:47 Patient arrived in ED. kc6 12:47 Carmina Guevara FNP-C [facility]. snw 12:47 Davidson Reyna MD is Attending Physician. snw 12:48 Chloe Pascal, MAMI is Primary Nurse. kc6 12:58 Triage completed. bp 12:58 Arm band placed on. bp 13:02 Patient has correct armband on for positive identification. Bed in low position. Call bp light in reach. Side rails up X2. 13:03 Maintain EMS IV. Dressing intact. Good blood return noted. Site clean \T\ dry. Gauge \T\ bp site: 20 GA R AC. 13:42 US Carotid Artery Bilateral In Process Unspecified. EDMS 14:20 XRAY Chest (1 view) In Process Unspecified. EDMS 14:36 Leslie Day MD is Hospitalizing Provider. snw 18:00 ERT ORTHOSTATIC V/S Sent. sm8 18:01 Lab(s) recollected, by me, sent to lab. sm8 18:02 No provider procedures requiring assistance completed. Patient admitted, IV remains in kc6 place. Administered Medications: 14:01 Drug: Potassium PO Effervescent Tablet 50 mEq Route: PO; sg5 16:35 Follow up: Response: No adverse reaction kc6 14:01 Drug: Magnesium Sulfate IVPB 1 grams Route: IVPB; Infused Over: 1 hrs; Site: right sg5 antecubital; 14:24 Follow up: IV Status: Completed infusion; IV Intake: 100ml sg5 14:23 Drug: Potassium Chloride IV 20 mEq Route: IV; Rate: calculated rate; Site: right sg5 antecubital; 16:35 Follow up: Response: No adverse reaction; IV Status: Completed infusion kc6 Medication: 13:02 VIS not applicable for this client. bp Intake: 14:24 IV: 100ml; Total: 100ml. sg5 Outcome: 14:36 Decision to Hospitalize by Provider. snw 18:02 Admitted to Med/surg accompanied by tech, via wheelchair, room 225, with chart, Report kc6 called to Mahnaz Tirado RN 18:02 Condition: improved 18:02 Instructed on the need for admit. 18:18 Patient left the ED. kc6 Signatures: Dispatcher [employer] EDCarmina Costello, INSTRUCTIONAL SYSTEMS SPECIALIST-C INSTRUCTIONAL SYSTEMS SPECIALIST-Csnw Hernandez Patel RN RN Chloe Dietz RN RN [id number] Justina Haque RN RN sg5 Hannah Mcclelland
[2023-02-18] MEDS ORDERED: TRAMADOL HCL 50 MG TAB PO PRN (15:23)
[2023-02-18] MEDS ORDERED: ACETAMINOPHEN 325 MG TABLET PO PRN (15:23)
[2023-02-18] MEDS ORDERED: MECLIZINE HCL 12.5 MG TAB PO PRN (15:32)
[2023-02-18] MEDS ORDERED: ONDANSETRON 4 MG/2 ML VIAL IV PRN (15:38)
--- NOTE | 2023-02-18 15:41 | P.HP ---
Certification for Inpatient Patient admitted to: Observation With expected LOS: <2 Midnights Patient will require the following post-hospital care: None Practitioner: I am a practitioner with admitting privileges, knowledge of patient current condition, hospital course, and medical plan of care. Services: Services provided to patient in accordance with Admission requirements found in Title 42 Section 412.3 of the Code of Federal Regulations Patient History Date of Service: 02/18/23 Reason for admission: Syncope History of Present Illness: Patient is a 47-year-old female with a past medical history significant for DM 2, hypertension, nicotine dependence, drug abuse who presents with complaint of syncope. Patient reported that as she was leaving [employer] store today she started experiencing episode of dizziness, lightheadedness and vertigo. Patient reported that she had a syncopal episode and was prevented from falling by her friend who was at her side. Patient denies hitting her head. Patient indicated that she cannot remember if she lost consciousness or not. Patient indicated that she has been having similar symptoms for the past 3 weeks. Patient reported associated signs and symptoms of shortness of breath with exertion, nausea, vomiting, fatigue and weakness. Patient denies any other signs and symptoms. Symptoms are aggravated by movement and relieved by rest. Patient decided to present to the hospital for medical evaluation. Allergies No Known Allergies Allergy (Unverified 02/18/23 16:32) - Past Medical/Surgical History -: DM 2 -: Hypertension -: Nicotine dependence -: Drug abuse -: Tubal ligation. - Family History Father -: Stroke Mother -: Hypertension, Diabetes, Stroke - Social History Smoking Status: Current every day smoker Counseled patient to stop smoking for: less than 10 minutes Smoking therapy provided: Yes Patient receptive to therapy: Yes Alcohol use: No CD- Drugs: No Caffeine use: Yes Place of Residence: Home Review of Systems General: Weakness, Other (fatigue) Eyes: Unremarkable ENT: Unremarkable Respiratory: SOB with Excertion Cardiovascular: Unremarkable Gastrointestinal: Nausea, Vomiting Genitourinary: Unremarkable Musculoskeletal: Unremarkable Integumentary: Unremarkable Neurological: Weakness, Other (Lightheadedness, vertigo, dizziness) Lymphatics: Unremarkable Physical Examination - Physical Exam General: Alert, In no apparent distress, Oriented x3, Cooperative HEENT: Atraumatic, PERRLA, Mucous membr. moist/pink, EOMI, Sclerae nonicteric Neck: Supple, 2+ carotid pulse no bruit, No LAD, Without JVD or thyroid abnormality Respiratory: Clear to auscultation bilaterally, Normal air movement Cardiovascular: No edema, Regular rate/rhythm, Normal S1 S2 Capillary refill: <2 Seconds Gastrointestinal: Normal bowel sounds, Soft and benign, No tenderness Musculoskeletal: No clubbing, No swelling, No tenderness Integumentary: No rashes, No significant lesion Neurological: Normal speech, Normal tone, Normal affect Lymphatics: No axilla or inguinal lymphadenopathy - Studies Laboratory Data (last 24 hrs) 02/18/23 02/18/23 02/18/23 12:53 12:53 12:53 WBC 5.90 Hgb 12.1 Hct 36.6 Plt Count 370 PT 12.3 INR 1.12 Sodium 134 L Potassium 2.5 L* BUN 15 Creatinine 1.23 H Glucose 175 H Magnesium 1.4 L Total Bilirubin 0.6 AST 14 L ALT 23 Alkaline Phosphatase 69 Assessment and Plan - Plan --Syncope. Carotid Doppler indicates Mild atherosclerotic plaque formation along the proximal left ICA with less than 50% stenosis otherwise unremarkable. Will get some orthostatic vital sign. Echocardiogram pending to assess cardiac structures and function. MRI brain pending for further evaluation. Neurologist consulted. Will await further recommendations from neurologist. --Vertigo. MRI brain pending for further evaluation. Patient placed on meclizine as needed. Fall precautions. Further management per neurologist. --DM2. BS monitoring with sliding scale insulin. --Nausea and vomiting. Antiemetics on board. Continue supportive care. --History of drug use. Patient reported being drug-free since October 2021. Drug use cessation reinforced. --Nicotine dependence. Patient counseled on tobacco cessation and placed on nicotine patch. -- CKD 3A. Stable. We will continue to monitor renal functions. --Hypokalemia\hypomagnesemia. Replete as needed. --UTI POA. UA positive for bacteria. Patient placed on antibiotics. Urine cultures pending. -- DVT prophylaxis with Lovenox subQ. Discharge Plan: Home Plan to discharge in: 48 Hours - Advance Directives Does patient have a Living Will: No Does patient have a Durable POA for Healthcare: No - Code Status/Comfort Care Code Status Assessed: Yes Physician Review: Patient Assessed, Agree with Above Assessment and Plan Critical Care: No
[2023-02-18] MEDS: ENOXAPARIN 40 MG/0.4 ML SQ SCH (16:00)
[2023-02-18 16:02] LABS: Barbiturates NEGATIVE (NEGATIVE); Benzodiazepines NEGATIVE (NEGATIVE); Cocaine NEGATIVE (NEGATIVE); METHAMPHETAM NEGATIVE (NEGATIVE); Methadone NEGATIVE (NEGATIVE); Opiates NEGATIVE (NEGATIVE); Phencyclidine NEGATIVE (NEGATIVE); THC Cannibis NEGATIVE (NEGATIVE)
[2023-02-18 16:27] LABS: Specific Gravity 1.009 (1.005-1.030); Urine Bacteria 20-50 /HPF (<20); Urine Bilirubin NEGATIVE (Negative); Urine Blood Negative (Negative); Urine Clarity Extremely Turbid (Clear); Urine Color Light-Yellow (Yellow); Urine Glucose NEGATIVE (Negative); Urine Mucus Slight /HPF (None Seen); Urine Protein NEGATIVE (Negative); Urine RBC <5 /HPF (None Seen); Urine Urobilinogen Normal (Normal)
[2023-02-18] MEDS: INSULIN -REGULAR HUMAN 50 UNIT/0.5 ML ML SQ SCH ×2 (16:30→21:00)
[2023-02-18] MEDS ORDERED: ENOXAPARIN 40 MG/0.4 ML SQ ONE (16:34)
[2023-02-18 18:20] LABS: Potassium 3.6 mEq/L (3.5-5.1)
[2023-02-18 18:30] LABS: Magnesium 1.9 mg/dL (1.6-2.4); Phosphorus 2.5 mg/dL (2.5-4.9); Thyroid Stimulating Hormone 0.87 uIU/mL (0.358-3.740)
--- NOTE | 2023-02-18 18:33 | RAD REPORT ---
EXAM DESCRIPTION: MRI - Brain Wo Cont - 02/18/2023 5:35 pm CLINICAL HISTORY: Syncope, Vertigo COMPARISON: Noncontrast head CT 01/31/2023 TECHNIQUE: Multiplanar multisequence MRI of the brain performed without IV contrast. FINDINGS: No evidence of acute infarct or other diffusion signal abnormality. No evidence of acute intracranial hemorrhage or abnormal extra-axial fluid collections. Ventricular caliber within normal for age. Midline structures are unremarkable. Subtle scattered subcortical and deep white matter T2/FLAIR hyperintensities, nonspecific. A single l esion in the left parietal subcortical white matter appears confluent, probably stable compared to th e prior CT. No mass effect or midline shift. Major vascular flow voids are preserved. Mastoid air cells and paranasal sinuses are clear. IMPRESSION: No acute intracranial process. Scattered subcortical and deep white matter T2 hyperintensities, including a confluent lesion in the left parietal subcortical region. These are nonspecific, and could relate to sequelae of migraine, va sculitis, or early chronic small vessel ischemic changes. Demyelinating disease is considered less li diogenes given the pattern of involvement, but not entirely excluded.
[2023-02-18] MEDS: CEFTRIAXONE 1,000 MG in NA CHLORIDE 0.9% 50 ML IVPB SCH (18:39)
[2023-02-18] MEDS: NICOTINE 14 MG/PAT TD SCH (18:39)
[2023-02-18 21:30] VITALS: BMI 36.5
[2023-02-19 03:28] LABS: Absolute Lymphocytes (CBC) 2.3 K/uL (0.7-4.9); Hematocrit 35.2 % (36.0-45.0); Lymphocytes % 29.5 % (15.3-44.8); MCV 80.2 fL (80-100); Platelets 347 thou/uL (152-406); RBC Red Blood Cell Count 4.39 M/uL (3.86-4.86)
[2023-02-19 03:40] LABS: Potassium 3.5 mEq/L (3.5-5.1)
[2023-02-19] MEDS: INSULIN -REGULAR HUMAN 50 UNIT/0.5 ML ML SQ SCH (07:30)
[2023-02-19] MEDS: CEFTRIAXONE 1,000 MG in NA CHLORIDE 0.9% 50 ML IVPB SCH (08:51)
[2023-02-19] MEDS: ENOXAPARIN 40 MG/0.4 ML SQ SCH (08:52)
[2023-02-19] MEDS: NICOTINE 14 MG/PAT TD SCH (08:52)
[2023-02-19] MEDS ORDERED: ASPIRIN 81 MG CHEWABLE TABLET PO SCH (09:00)
[2023-02-19] MEDS ORDERED: POTASSIUM CL SA 10 MEQ TAB PO ONE (09:00)
[2023-02-19 09:14] VITALS: O2SAT 97
[2023-02-19 17:43] VITALS: BP 121/77; TEMP 98.6
--- NOTE | 2023-02-19 18:10 | EKG ---
Test Date: 2023-02-18 Test Time: 12:50:06 Micro Lab Analyst: BP MEASUREMENT RESULTS: Intervals: Rate: 84 AL: 164 QRSD: 92 QT: 438 QTc: 517 [place]: P: 41 AL: 164 QRS: 32 T: 55 INTERPRETIVE STATEMENTS: Normal sinus rhythm Possible Left atrial enlargement Prolonged QT Abnormal ECG No previous ECG available for comparison Electronically Signed On 02-19-23 18:09:20 CDT by Delvin Rasmussen
--- NOTE | 2023-02-20 08:12 | ECHO ---
HEIGHT: 5 ft 5 in WEIGHT: 219 lb 0 oz DATE OF STUDY: 02/19/[address]: Cortney Bolaños 2-DIMENSIONAL: YES M.MODE: YES DOPPLER: YES COLOR FLOW: YES TDS: PORTABLE: YES DEFINITY: BUBBLE STUDY: DIAGNOSIS: SYNCOPE CARDIAC HISTORY: CATHERIZATION: NO SURGERY: NO PROSTHETIC VALVE: NO PACEMAKER: NO MEASUREMENTS (cm) DIASTOLIC (NORMALS) SYSTOLIC (NORMALS) IVSd 1.1 (0.6-1.2) LA Diam 3.1 (1.9-4.0) LVEF 66% LVIDd 3.9 (3.5-5.7) LVIDs 2.5 (2.0-3.5) %FS 36% LVPWd 1.2 (0.6-1.2) Ao Diam 2.3 (2.0-3.7) 2 DIMENSIONAL ASSESSMENT: RIGHT ATRIUM: NORMAL LEFT ATRIUM: NORMAL RIGHT VENTRICLE: NORMAL LEFT VENTRICLE: NORMAL TRICUSPID VALVE: MILD TRICUSPID REGURGITATION MITRAL VALVE: NORMAL PULMONIC VALVE: NORMAL AORTIC VALVE: NORMAL PERICARDIAL EFFUSION: NONE AORTIC ROOT: NORMAL LEFT VENTRICULAR WALL MOTION: NORMAL DOPPLER/COLOR FLOW: MILD TRICUSPID REGURGITATION COMMENTS: 1. NORMAL LEFT VENTRICULAR EJECTION FRACTION 60-65% 2. NORMAL DIASTOLIC FUNCTION 3. NORMAL WALL MOTION 4. MILD TRICUSPID REGURGITATION TECHNOLOGIST: ESTEVAN PALMA
== END 2023-02-19 18:03 | disposition home or self-care (01) ==
LOC: ER 12:42 → ERHOLD 15:22 → 2ND 17:18
PROVIDERS: ADMIT Hospitalist; ATTEND Hospitalist
DX: R55 Syncope and collapse (principal); R42 Dizziness and giddiness; I65.22 Occlusion and stenosis of left carotid artery; E11.9 Type 2 diabetes mellitus without complications; F17.210 Nicotine dependence, cigarettes, uncomplicated; E11.22 Type 2 diabetes mellitus with diabetic chronic kidney disease; N18.31 Chronic kidney disease, stage 3a; E87.6 Hypokalemia; N39.0 Urinary tract infection, site not specified; Z79.4 Long term (current) use of insulin
CPT/HCPCS: 36415; 70551; 71045; 80048; 80061; 80076; 80307; 81001; 82947; 83735; 83880; 84100; 84439; 84443; 84484; 85025; 85610; 93005; 93306; 93880; 96365; 96366; 99285; J0696; J1650; J3475; J3480; J7030; J8597

== ENCOUNTER → 2023-08-12 | Emergency (ER) | payer SELFPAY ==
[~2023-08-12] MED LIST: MAGNES/ALUMIN/SIMET 30ML UCUP ONE
--- OUTSIDE RECORDS SUMMARY | 2023-08-12 08:24 | XMS REPORT | Continuity of Care Document ---
Author Name Unknown Address [address] [facility] [address] [place] [address] [facility] thconnect Address [address] [place] [address] Care Team Providers Care Wireline Operator Name Role Phone UNKNOWN, REFFERING Primary Care Physician Cely Ayon Attending Clinician + [phone] MARÍA PALMA Attending Clinician [facility]availgabby [facility] Attending Clinician + JUNE WOODARD Attending Clinician Unavail jey Kessler [facility] Resident Attending Clinician UnavailIsiah Perera MD Attending Clinician [phone] Doctor Unassigned, Formoso Attending Clinician U CELY Zamorano Attending Clinician UnavailReid Almeida DO Attending Clinician [phone] María Negron Attending Clinician [phone] NGOC MCGILL M.D., Irina CROWDER Attendin g Clinician Unavailable NGOC MCGILL M.D., NGOC Admitting Clini any Unavailable Payers Payer Name Policy Type Policy Number Effective Date Expirati on Date Source Problems Condition Name Condition Details Condition Category Status Onset Date Resolution Date Last Treatment Date Treating Clinician Comments Source Other general counseling and advice for contracept jacinto management Other general counseling and advice for contracept jacinto management Disease Active 04-04 00:00: 00 [facility] History of herpes genitalis History of herpes genitalis Disease Active 04-04 00:00: 00 [facility] Contact with and (suspected ) exposure to infections with a predominan tly sexual mode of transmissi on Contact with and (suspected ) exposure to infections with a predominan tly sexual mode of transmissi on Disease Active 2 00:00: 00 [facility] Screening examinatio n for venereal disease Screening examinatio n for venereal disease Disease Active 411 00:00: 00 [facility] Hypertensi on, unspecifie d type Hypertensi on, unspecifie d type Disease Active 03-19 00:00: 00 [facility] Obesity (BMI 30-39.9) Obesity (BMI 30-39.9) Disease Active 03-19 00:00: 00 [facility] Vaginal discharge Vaginal discharge Disease Active 11-28 00:00: 00 [facility] History of tubal ligation History of tubal ligation Disease Active 11-27 00:00: 00 [facility] Encounter for screening mammogram for breast cancer Encounter for screening mammogram for breast cancer Disease Active 11-27 00:00: 00 [facility] History of depression History of depression Disease Active 11-27 00:00: 00 [facility] Tobacco use disorder Tobacco use disorder Disease Active 11-27 00:00: 00 [facility] Allergies, Adverse Reactions, Alerts Allergy Name Allergy Type Status Severity Reaction(s) Onset Date Inactive Date Treating Clinician Comments Source NO KNOWN ALLERGIE S Drug Class Active [facility] Social History Social Habit Start Date Stop Date Quantity Comments Source History of tobacco use Cigarette Smoker [facility] History SDOH Alcohol Frequency [facility] History SDOH Alcohol Std Drinks [facility] History SDOH Alcohol Binge [facility] Exposure to SARS-CoV-2 (event) Not sure [facility] Alcohol intake 2021-04-04 00:00:00 2021-04-04 00:00:00 .86 /d [facility] Cigarettes smoked current (pack per day) - Reported 2016-11-27 00:00:00 2016-11-27 00:00:00 [facility] Cigarette pack-years 2016-11-27 00:00:00 2016-11-27 00:00:00 [facility] Tobacco use and exposure 2016-11-27 00:00:00 2016-11-27 00:00:00 Never used [facility] Alcohol Comment 2016-11-27 00:00:00 2016-11-27 00:00:00 social drinker [facility] Sex Assigned At 1975 00:00:00 1975 00:00:00 [facility] Smoking Status Start Date Stop Date Source Current every day smoker 2016-11-27 00:00:00 [facility] Medications Ordered Medication Name Filled Medication Name Start Date Stop Date Current Medication? Ordering Clinician Indication Dosage Frequency Signature (SIG) Comments Components Source acyclovir 400 mg tablet 04-04 00:00: 00 Yes [id number] 400mg Take 1 tablet by mouth 2 (two) times daily. [facility] acyclovir 400 mg tablet 04-04 00:00: 00 Yes [id number] 400mg Take 1 tablet by mouth 2 (two) times daily. [facility] acyclovir 400 mg tablet 04-04 00:00: 00 Yes [id number] 400mg Take 1 tablet by mouth 2 (two) times daily. [facility] Vital Signs Vital Name Observation Time Observation Value Comments S ourlily Heart rate 2021-04-04 14:05:00 88 /min [facility] Body temperature 2021-04-04 14:05:00 36.83 [facility] Respiratory rate 2021-04-04 14:05:00 18 /min [facility] Body height 2021-04-04 14:05:00 165.1 cm [facility] Body weight 2021-04-04 14:05:00 115.849 kg [facility] BMI 2021-04-04 14:05:00 42.50 kg/m2 [facility] Systolic blood pressure 2021-04-04 14:05:00 138 mm[Hg] [facility] Diastolic blood pressure 2021-04-04 14:05:00 88 mm[Hg] [facility] Procedures Procedure Date / Time Performed Performing Clinicia n Source GC & CHLAMYDIA AMPLIFIED ASSAY 2021-04-04 14:43:00 June Woodard [facility] HIV 1/2 AG-AB WITH REFLEX 2021-04-04 14:35:00 June Woodard [facility] GALV ONLY - SYPHILIS IGG/IGM 2021-04-04 14:35:00 June Woodard [facility] Encounters Start Date/Time End Date/Time Encounter Type Admission Type Attending [facility] Care Department Encounter ID Source 2023-01-22 14:43:24 2023-01-22 14:43:24 Outpatient SFA SFA [id number] Macario Siegel 2023-01-15 17:09:12 2023-01-15 17:09:12 Outpatient SFA SFA [id number] Macario Siegel 2022-12-17 09:38:54 2022-12-17 09:38:54 Outpatient SFA SFA [id number] Macario Siegel 2022-11-06 09:49:58 2022-11-06 09:49:58 Outpatient SFA SFA [id number] Macario Siegel 2022-09-19 09:15:37 2022-09-19 09:15:37 Outpatient SFA SFA [id number] Macario Siegel 2022-08-29 08:58:43 2022-08-29 08:58:43 Outpatient SFA SFA [id number] Macario Siegel 2022-07-29 10:42:20 2022-07-29 10:42:20 Outpatient SFA SFA [id number] Macario Siegel 2022-07-16 11:21:55 2022-07-16 11:21:55 Outpatient SFA SFA [id number] Macario Siegel 2022-05-29 16:57:43 2022-05-29 16:57:43 Outpatient SFA SFA [id number] Macario Siegel 2022-05-22 14:27:03 2022-05-22 14:27:03 Outpatient SFA [facility] Macario Siegel 2022-05-20 13:46:21 2022-05-20 13:46:21 Outpatient SFA [facility] Macario Siegel 2021-11-25 00:00:00 2021-11-25 00:00:00 Cely Lawton [facility]IL WELL GUN PERFORATOR OPERATOR [facility] MATERNAL & CHILD [facility] [id number] 350.1.13.10 4.2.7.2.686 [id number] [facility] 2021-05-02 09:45:00 2021-05-02 09:45:00 Outpatient MARÍA MARSH [facility] [id number] [facility] 2021-04-09 00:00:00 2021-04-09 00:00:00 Telephone June Woodard [facility] OIL WELL GUN PERFORATOR OPERATOR [facility] & CHILD [facility] [id number] 350.1.13.10 4.2.7.2.686 [id number] [facility] 2021-04-04 08:54:02 2021-04-04 09:36:30 Office Visit June Woodard [facility] OIL WELL GUN PERFORATOR OPERATOR [facility] CHILD [facility] 1..840.114 350.1.13.10 4.2.7.2.686 [id number] [facility] 2021-04-04 09:00:00 2021-04-04 09:00:[address] [facility] [id number] [facility] 2021-04-02 08:45:00 2021-04-02 08:45:00 Outpatient R JUNE WOODARD [facility] [id number] [facility] 2020-11-24 13:30:00 2020-11-24 13:30:[address] [facility] [id number] [facility] 2020-11-10 13:30:00 2020-11-10 13:30:[address] [facility] [id number] [facility] 2020-10-20 13:42:03 2020-10-20 14:32:12 Office Visit [place] [facility] Resident Isiah Delgado [facility] 1.84.114 350.1.13.10 4.2.7.2.686 [id number] [facility] 2020-10-20 13:30:00 2020-10-20 13:30:[address] [facility] [id number] [facility] 2020-10-20 00:00:00 2020-10-20 00:00:00 Orders Only Doctor Unassigned, Formoso [facility] 1.840.114 350.1.13.10 4.2.7.2.686 [id number] [facility] 2020-10-05 11:00:00 2020-10-05 11:00:00 Outpatient R CELY RAMIREZ [facility] [id number] [facility] 2020-10-05 09:48:47 2020-10-05 10:21:23 Office Visit Cely Ramirez [facility]IL WELL GUN PERFORATOR OPERATOR [facility] 1.840.114 350.1.13.10 4.2.7.2.686 [id number] [facility] 2020-09-28 00:00:00 2020-09-28 00:00:[address] [facility] 1..114 350.1.13.10 4.2.7.2.686 [id number] [facility] 2020-09-26 12:55:08 2020-09-26 13:27:43 Office Visit Cely Ramirez [facility] OIL WELL GUN PERFORATOR OPERATOR [facility] MAT[facility]NAL & CHILD [facility] 1.2840.114 350.1.13.10 4.2.7.2.686 [id number] [facility] 2020-09-26 12:45:00 2020-09-26 12:45:[address] [facility] [id number] [facility] 2020-05-22 06:29:11 2020-05-22 23:59:00 Hospital Encounter María Palma [facility] 1.2840.114 350.1.13.10 4.2.7.2.686 [id number] [facility] 2020-05-22 00:00:00 2020-05-22 00:00:00 Outpatient MARÍA MARSH [facility] [id number] [facility] 2020-04-24 00:00:00 2020-04-24 00:00:00 Telephone María Palma [facility] OIL WELL GUN PERFORATOR OPERATOR [facility] MAT[facility]NAL & CHILD [facility] 1.20.114 350.1.13.10 4.2.7.2.686 [id number] [facility] 2020-04-20 10:50:54 2020-04-20 11:42:31 Office Visit María Palma [facility] OIL WELL GUN PERFORATOR OPERATOR [facility] & CHILD [facility] 1.2840.114 350.1.13.10 4.2.7.2.686 [id number] [facility] 2020-04-20 11:00:00 2020-04-20 11:00:00 Outpatient R MARÍA PALMA [facility] [id number] [facility] 2020-04-20 00:00:00 2020-04-20 00:00:00 Orders Only Doctor Unassigned, Formoso [facility] 1.2840.114 350.1.13.10 4.2.7.2.686 [id number] [facility] 2020-01-20 09:15:00 2020-01-20 09:15:[address] [facility] [id number] [facility] 2019-11-05 08:30:00 2019-11-05 08:30:[address] [facility] [id number] [facility] 2019-09-03 09:30:42 2019-09-03 09:54:46 Office Visit Cely Ramirez [facility]IL WELL GUN PERFORATOR OPERATOR [facility] MATERNAL & CHILD [facility] 1.2.840.114 350.1.13.10 4.2.7.2.686 [id number] [facility] 2017-05-06 02:00:00 2017-05-08 17:53:00 Inpatient NGOC YEN M.D. [facility] [id number] [facility] Results Test Description Test Time Test Comments Results Result Co mments Source TSH, THIRD [id number] 10:47:40* Test Item Value Reference Range Interpretation Comme [facility] TSH, THIRD GENERATION (test code = 2821) 1.490 UIU/ML 0.400-4.100 FSH + LH [id number] 10:47:40* Test Item Value Reference Range Interpretation Comme [facility] FOLLICLE STIM HORMONE (test code = 2700) 7.9 IU/L SEE BELOW EXPEC SHARATH VALUES FOR FSH FOR FEMALES >17 YEARS FOLLICULAR 3.5-12.5 IU/L MID-CYCLE PEAK 4.7-21.5 IU/L LUTEAL PHASE 1.7-7.7 IU/L POSTMENOPAUSAL 25.8-134.8 IU/L LUTEINIZING HORMONE (test code = 2776) 5.4 IU/L SEE BELOW EXPEC SHARATH VALUES FOR LH FOR FEMALES >17 YEARS MALES FEMALES >=18 YEARS 1.8-8.6 IU/L FOLLICULAR 2.4-12.6 IU/L MID-CYCLE PEAK 14.0-95.6 IU/L LUTEAL PHASE 1.0-11.4 IU/L POSTMENOPAUSAL 7.7-58.5 IU/L [facility] has important pathology staff changes effective 09/11/2022. New pathology staff will provide uninterrupted, excellent patient care and clinical consultation. See URL: [email or web address]. UNLESS OTHERWISE INDICATED, ALL TESTING PERFORMED AT [facility] [address] [place] [address] RECENTERER: ALISSA HUBBARD M.D. CLIA NUMBER [id number] [place]. [id number] HEMOGLOBIN [id number] 03:29:36* Test Item Value Reference Range Interpretation Comme [facility] HEMOGLOBIN A1c (test code = 19490) 6.0 % 4.2-5.6 H [facility] has impo rtant pathology staff changes effective 09/11/2022. New pathology staff will provide uninterrupted, excellent patient care and clinical consultation. See URL: [email or web address]. UNLESS OTHERWISE INDICATED, ALL TESTING PERFORMED AT [facility] [address] [place] [address] CLIA: [id number], CAP: [id number] TSH, THIRD [id number] 06:19:50* Test Item Value Reference Range Interpretation Comme [facility] TSH, THIRD GENERATION (test code = 2821) 1.070 UIU/ML 0.400-4.100 UNLESS OTHERWISE INDICATED, ALL TESTING PERFORMED [facility] [address] [place] [address] RECENTERER: MANSI IGNACIO M.D. CLIA NUMBER [id number] [place]. [id number] COMPREHENSIVE METABOLIC [id number] 03:27:14* Test Item Value Reference Range Interpretation Comme nts GLUCOSE (test code = 2217) 91 MG/DL 70-99 BUN (test code = 2208) 14 MG/DL 6-20 CREATININE (test code = 2214) 0.79 MG/DL 0.60-1.30 eGFR (2020 CKD-EPI) (test code = 98653) 94 ML/MIN/1.73 >60 CALC BUN/CREAT (test code = 2235) 18 RATIO 6-28 SODIUM (test code = 2231) 138 MEQ/L 133-146 POTASSIUM (test code = 2228) 4.4 MEQ/L 3.5-5.4 CHLORIDE (test code = 5) 101 MEQ/L 95-107 CARBON DIOXIDE (test code = 2205) 26 MEQ/L 19-31 CALCIUM (test code = 2208) 9.9 MG/DL 8.5-10.5 PROTEIN, TOTAL (test code = 2228) 7.4 G/DL 6.1-8.3 ALBUMIN (test code = 2200) 4.3 G/DL 3.5-5.2 CALC GLOBULIN (test code = 0) 3.1 G/DL 1.9-3.7 CALC A/G RATIO (test code = 223) 1.4 RATIO 1.0-2.6 BILIRUBIN, TOTAL (test code = 2206) 0.3 MG/DL See_Comment [Automated me ssage] The system which generated this result transmitted reference range: <=1.2. The reference range was not used to interpret this result as normal/abnormal. ALKALINE PHOSPHATASE (test code = 2203) 74 U/L 40-116 AST (test code = 2217) 21 U/L 9-40 ALT (test code = 2218) 29 U/L 5-40 LIPID [id number] 03:27:14* Test Item Value Reference Range Interpretation Comme nts CHOLESTEROL (test code = 0) 223 MG/DL <200 H TRIGLYCERIDES (test code = 2) 92 MG/DL <150 HDL CHOLESTEROL (test code = 2219) 71 MG/DL >39 CALC LDL CHOL (test code = 2236) 132 MG/DL <100 H NOTE: CALCULATED LDL IS BASED ON JOANN-BYERS METHOD WHICHINCLUDES ADJUSTABLE TRIGLYCERIDE:VLDL CHOLESTEROL RATIO.THIS FACTOR VARIES BY MEASURED TRIGLYCERIDE AND NON-HDLCHOLESTEROL CONCENTRATIONS WITH INCREASED CALCULATED LDL SEENIN HIGHER TRIGLYCERIDE OR LOWER NON-HDL SPECIMENS. FOR MOREINFORMATION, SEE CLIENT ANNOUNCEMENT AT [email or web address] RISK RATIO LDL/HDL (test code = 2238) 1.86 RATIO <3.22 CBC W/AUTO DIFF WITH [id number] 01:53:40* Test Item Value Reference Range Interpretation Comme nts WBC (test code = 1001) 5.8 K/UL 3.5-11.0 RBC (test code = 1002) 4.46 M/UL 3.80-5.40 HEMOGLOBIN (test code = 1003) 12.2 G/DL 11.5-15.5 HEMATOCRIT (test code = 1004) 36.0 % 34.0-45.0 MCV (test code = 1005) 80.7 fL 80.0-99.0 MCH (test code = 1006) 27.4 PG 25.0-33.0 MCHC (test code = 1007) 33.9 G/DL 31.0-36.0 RDW (test code = 1038) 14.3 % 11.5-15.0 NEUTROPHILS (test code = 1008) 63.1 % LYMPHOCYTES (test code = 1010) 28.8 % MONOCYTES (test code = 1011) 5.7 % EOSINOPHILS (test code = 1012) 1.9 % BASOPHILS (test code = 1013) 0.3 % IMMATURE GRANULOCYTES (test code = 1036) 0.2 % NUCLEATED RBCS (test code = 1065) 0.0 /100 WBC'S See_Comment [Automated messa ge] The system which generated this result transmitted reference range: 0.0. The reference range was not used to interpret this result as normal/abnormal. PLATELET COUNT (test code = 1015) 343 K/UL 130-400 ABSOLUTE NEUTROPHILS (test code = 1066) 3.66 K/UL 1.50-7.50 ABSOLUTE LYMPHOCYTES (test code = 1067) 1.67 K/UL 1.00-4.00 ABSOLUTE MONOCYTES (test code = 1068) 0.33 K/UL 0.20-1.00 ABSOLUTE EOSINOPHILS (test code = 1040) 0.11 K/UL 0.00-0.50 ABSOLUTE BASOPHILS (test code = 1069) 0.02 K/UL 0.00-0.20 ABS IMMATURE GRANULOCYTES (test code = 1020) 0.01 K/UL 0.00-0.10 ABS NUCLEATED RBCS (test code = 55442) 0.00 K/UL 0.00-0.11 CT/NG, NAAT, [id number] 15:58:55* Test Item Value Reference Range Interpretation Comme nts GONORRHEA, NAAT (test code = 89807) NEGATIVE NEGATIVE IMPORTANT NO ALLA: SEE ANNOUNCEMENT AT [email or web address] Note: Assay methodology is nucleic acid amplification by sample coordinator mediated amplification (TMA) utilizing the Aptima Combo 2 Assay. CHLAMYDIA, NAAT (test code = 77714) NEGATIVE NEGATIVE IMPORTANT NO ALLA: SEE ANNOUNCEMENT AT [email or web address] Note: Assay methodology is nucleic acid amplification by sample coordinator mediated amplification (TMA) utilizing the Aptima Combo 2 Assay. PAP TEST, THINPREP, [id number] 15:46:34* Test Item Value Reference Range Interpretation Comme nts SOURCE: (test code = 8001) Cervical SLIDES: (test code = 8011) 1 LMP: (test code = 8021) 07/14/2021 SPECIMEN ADEQUACY: (test code = 78392) (NOTE) Satisfactory for evaluation. Endocervical cells/transformation zone component not identified. INTERPRETATION: (test code = 72465) NILM/NO EPITH. ABNORMALITY;SEE BELOW --- - NEGATIVE FOR INTRAEPITHELIAL LESION OR MALIGNANCY (NILM) ---- OTHER COMMENTS: (test code = 8081) (NOTE) Shift in mary carmen suggestive of bacterial vaginosis. MARKETING RESEARCH COORDINATOR : (test code = 8101) [place] (ASCP) LOCATION: (test code = 29021) (NOTE) Specimens proces sed and interpreted at [facility], [address] [place] [address], , CLIA: [id number] CPT: (test code = 8140) (NOTE) [address]78[address] UNLESS OTH ERWISE INDICATED, COMPUTER AIDED AND MARKETING RESEARCH COORDINATOR SCREENING PERFORMED. The Pap test is a screening test with an inherent, but low probability of error. Your patient should be reminded to consult you immediately if she experiences any suspicious signs or symptoms, regardless of her Pap test result. An alternate report format containing images or consolidated prior Pap history is available as applicable. UNLESS OTHERWISE INDICATED, ALL TESTING PERFORMED [facility] [address] [place] [address] RECENTERER: MANSI IGNACIO M.D. CLIA NUMBER [id number] [place]. [id number] VAGINAL PATHOGENS DNA [id number] 14:04:03* Test Item Value Reference Range Interpretation Comme nts AMARA SPECIES (test code = 63638) NEGATIVE NEGATIVE G. VAGINALIS (test code = 89242) POSITIVE NEGATIVE A T. VAGINALIS (test code = 62356) NEGATIVE NEGATIVE UNLESS OTHERWISE INDICATED, ALL TESTING PERFORMED [employer], [employer]. [address] [place] [address] RECENTERER: MANSI IGNACIO M.D. CLIA NUMBER [id number] [place]. [id number] HIV 1/2 4TH GEN, RFLX [id number] 03:43:31* Test Item Value Reference Range Interpretation Comme nts HIV 1/2 4TH GEN, RFLX CONF ( test code = 3514) NON-REACTIVE NON-REACTIVE HEPATITIS PANEL, [id number] 03:43:31* Test Item Value Reference Range Interpretation Comme nts HEPATITIS A IgM (test code = 80376) NON-REACTIVE NON-REACTIVE HEPATITIS B CORE IgM (test code = 4644) NON-REACTIVE NON-REACTIVE HEPATITIS B SURF AG (test code = 2739) NON-REACTIVE NON-REACTIVE HEPATITIS C ANTIBODY (test code = 4675) NON-REACTIVE NON-REACTIVE INTERPRETATION HEPATITIS A: (test code = 2552) (NOTE) Hepatitis A serology shows no evidence of acute hepatitis A. INTERPRETATION HEPATITIS B: (test code = 08856) (NOTE) Hepatitis B serology shows no evidence of acute hepatitis B andno indication of exposure to hepatitis B virus in the previous joseph eight months. INTERPRETATION HEPATITIS C: (test code = 30167) (NOTE) Hepatitis C serology shows no evidence of exposure to hepatitisC virus at this time. It can take up to 12 months after exposure tothe hepatitis C virus for antibodies to become detectable in the blood in certain patients. [id number] 03:39:24* Test Item Value Reference Range Interpretation Comme nts RPR RESULT (test code = 3501) NON-REACTIVE NON-REACTIVE RPR TITER (test code = 3500) NOT INDIC. TITER NOT INDIC. RPR, [id number] 16:41:00* Test Item Value Reference Range Interpretation Comme nts RPR (test code = RPR) Non-Reactive Non-Reactive N Thyroid Stimulating Hormone (TSH)2017-05-06 06:59:00* Test Item Value Reference Range Interpretation Comme nts TSH (test code = TSH) 1.75 mIU/mL 0.270-4.200 N Lipid [id number] 06:51:00* Test Item Value Reference Range Interpretation Comme nts Cholesterol (test code = CHOL) 192 mg/dL 0-200 N Triglycerides (test code = TRIG) 88 mg/dL 9-200 N HDL (test code = HDL) 66 mg/dL 50-60 H Chol/HDL (test code = CHOLPHDL) 2.9 Ratio 0.0-4.4 N LDL, Calculated (test code = LDLC) 108 0-130 N (NOTE)RISK OF HEART DISEASEPublished by Beninese Heart AssociationAnalyte Optimal Boderline Increased RiskCHOL <200 200-239 >240TRIG <150 150-199 >200HDL Male: >60 <40HDL Female: >60 <50LDL <100 130-159 >160LDL NEAR OPTIMAL IS 100-129 VLDL (test code = VLDL) 18 mg/dL 5-40 N LDL/HDL (test code = LDLPHDL) 2 Notes Date/Time Note Provider Source 2017-05-28 21:09:15 [id number]:09:15 [facility] Discharge SummaryPATIENT NAME: SHANI PALMA PHYSICIAN: Daphnie Herring MD Admitted: MR NUMBER: [id number] DISCHARGED: 05/08/2017 06:53:00 DATE OF ADMISSION: 05/06/2017DATE OF DISCHARGE: 05/08/2017ATTENDING PHYSICIAN:MARIANNE Marrero FOR ADMISSION:Ms. Shani Palma is a 41-year-old female with a past psychiatric history of depression, suicide attempt and polysubstance use, including history of cocaine and current use of alcohol and meth. She is presenting for suicidal ideation with a plan to shoot herself in the context of being homeless since [place], familial problems (son had to go to [facility] for molesting a friend's child a few days prior to her admission). She has also been off psychotropicmedications and was using alcohol and methamphetamines. After starting to feel so depressed once her suicidal ideations started, she asked a friend to take her to [facility] where she was evaluated. She was brought here to [facility] on an EAD and signed in voluntarily. On interview, she is positive for depressed mood, hopelessness, crying spells, guilt, and suicidal ideation with plan, but without intent for the last 2 months. Her psych review of systems is otherwise negative. Her labs were significant for UDS positive for amphetamines and a blood alcohol content of 0.1.ADMITTING DIAGNOSIS:AXIS I: Major depressive disorder, recurrent, most recent episode, severe, without psychotic symptoms, substance-induced mood disorder and polysubstanceuse disorder (with alcohol and methamphetamines).AXIS II: None.AXIS III: Hypertension.AXIS IV: Homeless since [place], has been staying with friends and family. She is employed at [employer]. She has four children. Her youngest is 17 years old. He was the one that was most recently taken to juvenile detentionfor molesting a friend's daughter.PRINCIPAL PROCEDURES:Psychopharmacotherapy.SPECIAL PROCEDURE:None.HOSPITAL COURSE:Ms. Shani Palma is a 41-year-old female that was admitted to Dr. Velasco from 05/06/2017 to 05/08/2017. The patient was on unit restrictions along with elopement and standard PICU precautions. The patient was started on Prozac 20 mg p.o. daily, and Ativan taper starting at 2 mg q.i.d. for the first day, was slowly tapered down throughout her stay. The patient tolerated all the medications and found that she had some improvement in mood. The patient attended the daily assessments and group therapy. On the day of discharge, the patient was deemed suitable for discharge based on no [facility] Discharge SummaryPATIENT NAME: SHANI PALMA PHYSICIAN: Daphnie Herring MD Admitted: MR NUMBER: [id number] DISCHARGED: 05/08/2017 06:53:00 DATE OF ADMISSION: 05/06/2017DATE OF DISCHARGE: 05/08/2017ATTENDING PHYSICIAN:MARIANNE Marrero FOR ADMISSION:Ms. Shani Palma is a 41-year-old female with a past psychiatric history of depression, suicide attempt and polysubstance use, including history of cocaine and current use of alcohol and meth. She is presenting for suicidal ideation with a plan to shoot herself in the context of being homeless since [place], familial problems (son had to go to [facility] for molesting a friend's child a few days prior to her admission). She has also been off psychotropicmedications and was using alcohol and methamphetamines. After starting to feel so depressed once her suicidal ideations started, she asked a friend to take her to [facility] where she was evaluated. She was brought here to [facility] on an EAD and signed in voluntarily. On interview, she is positive for depressed mood, hopelessness, crying spells, guilt, and suicidal ideation with plan, but without intent for the last 2 months. Her psych review of systems is otherwise negative. Her labs were significant for UDS positive for amphetamines and a blood alcohol content of 0.1.ADMITTING DIAGNOSIS:AXIS I: Major depressive disorder, recurrent, most recent episode, severe, without psychotic symptoms, substance-induced mood disorder and polysubstanceuse disorder (with alcohol and methamphetamines).AXIS II: None.AXIS III: Hypertension.AXIS IV: Homeless since [place], has been staying with friends and family. She is employed at [employer] She has four children. Her youngest is 17 years old. He was the one that was most recently taken to juvenile detentionfor molesting a friend's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 Marx, MDDate Dictated: 05/07/2017Date 05/07/2017Transcribed:SAMANTHA/DASHAWN/KEYSHA/Nikole #: [id number]:Georgina Marrero Electronically Authenticated and Edited by:Daphnie Herring MD On 05/08/2017 05:22 AM CDTElectronically Authenticated by:Ngoc Mcgill MD On 05/09/2017 07:08 AM [id number] for patient [id number] [facility]
[2023-08-12 09:21] LABS: Absolute Lymphocytes (CBC) 1.5 K/uL (0.7-4.9); Hematocrit 38.1 % (36.0-45.0); Lymphocytes % 24.7 % (15.3-44.8); MCV 82.7 fL (80-100); MPV 6.9 fL (7.6-11.3); Platelets 346 thou/uL (152-406); RBC Red Blood Cell Count 4.61 M/uL (3.86-4.86)
--- NOTE | 2023-08-12 09:22 | RAD REPORT ---
EXAM DESCRIPTION: RADChest Single View08/12/2023 9:07 am CLINICAL HISTORY: CHEST PAIN COMPARISON: Chest Single View dated 02/18/2023 TECHNIQUE: Portable AP view of the chest. FINDINGS: The lungs are clear. No pneumothorax or effusion. The cardiomediastinal contours are unre markable. IMPRESSION: No acute cardiopulmonary process.
[2023-08-12 09:48] LABS: ALT/SGPT 17 U/L (13-56); AST/SGOT 11 U/L (15-37); Albumin 3.2 g/dL (3.4-5.0); Alkaline Phosphatase 66 U/L (45-117); BUN Blood Urea Nitrogen 13 mg/dL (7-18); Bicarbonate 30 mEq/L (21-32); Bilirubin Total 0.3 mg/dL (0.2-1.0); Glomerular Filtration Rate 86 ml/min (=/>90); Glucose Level 104 mg/dL (74-106); Magnesium 2.2 mg/dL (1.6-2.4); Potassium 3.6 mEq/L (3.5-5.1); Protein, Total 7.3 g/dL (6.4-8.2); Sodium Level 137 mEq/L (136-145); Troponin High Sensitivity 3.4 pg/mL (<58.9)
[2023-08-12 09:49] LABS: Bilirubin Direct < 0.1 mg/dL (0-0.2); Bilirubin Indirect, Calculated ND mg/dL (0.2-0.8)
--- NOTE | 2023-08-12 10:01 | ER ---
Nurse's Notes [facility] Name: Traci Mondragon Age: 48 yrs Sex: Female : 1975 Arrival Date: 08/12/2023 Time: 08:21 Bed DX5 Private MD: Diagnosis: Chest pain, unspecified Presentation: 08/12 08:37 Chief complaint: Patient states: she started having chest pain yesterday. She initially ap3 believed it was indigestion, but her indigestion medication did not alleviate the pain. patient currently reports her pain to be a 8/10 on the pain scale. Coronavirus screen: At this time, the client does not indicate any symptoms associated with coronavirus-19. Ebola Screen: No symptoms or risks identified at this time. Initial Sepsis Screen: Does the patient meet any 2 criteria? No. Patient's initial sepsis screen is negative. Does the patient have a suspected source of infection? No. Patient's initial sepsis screen is negative. Risk Assessment: Do you want to hurt yourself or someone else? Patient reports no desire to harm self or others. Onset of symptoms was August 11, 2023. 08:37 Method Of Arrival: Ambulatory ap3 08:37 Acuity: THIAGO 2 ap3 Triage Assessment: 08:39 General: Appears in no apparent distress. Behavior is calm, cooperative, appropriate ap3 for age. Pain: Complains of pain in chest Pain currently is 8 out of 10 on a pain scale. Pain began 1 day ago. Neuro: Level of Consciousness is awake, alert, obeys commands, Oriented to person, place, time, situation. Cardiovascular: Reports chest pain. Respiratory: Airway is patent Respiratory effort is even, unlabored, Respiratory pattern is regular, symmetrical. [employer]: 08:40 LMP 07/14/2023, unknown ap3 Historical: - Allergies: 08:38 No Known Allergies; ap3 - PMHx: 08:38 diabetes mellitus; drug abuse; Hypertensive disorder; ap3 - PSHx: 08:38 tubal ligation; ap3 - Immunization history:: Client reports receiving the 2nd dose of the Covid vaccine, Flu vaccine is not up to date. - Social history:: Smoking status: Patient reports the use of cigarette tobacco products, smokes one-half pack cigarettes per day. - Family history:: not pertinent. Screenin:39 [facility] ED Fall Risk Assessment (Adult) History of falling in the last 3 months, ap3 including since admission No falls in past 3 months (0 pts). Abuse screen: Denies threats or abuse. Nutritional screening: No deficits noted. Tuberculosis screening: No symptoms or risk factors identified. Assessment: 10:16 Pain: Pain does not radiate. ap3 Vital Signs: 08:37 BP 168 / 98; Pulse 76; Resp 17; Temp 97.7; Pulse Ox 100% ; Weight 91.63 kg; Height 5 ap3 ft. 5 in. ; Pain 8/10; 08:37 Body Mass Index 33.61 (91.63 kg, 165.1 cm) ap3 08:37 Pain Scale: Adult ap3 ED Course: 08:24 Patient arrived in ED. mg5 08:38 Triage completed. ap3 08:39 Arm band placed on right wrist. ap3 08:40 Patient maintains SpO2 saturation greater than 95% on room air. ap3 08:43 Rainer Espinoza MD is Attending Physician. rt 08:47 Inserted saline lock: 22 gauge in right antecubital area, using aseptic technique. ap3 Blood collected. 09:09 XRAY Chest (1 view) In Process Unspecified. EDMS 10:15 No provider procedures requiring assistance completed. IV discontinued, intact, ap3 bleeding controlled, No redness/swelling at site. Pressure dressing applied. 10:16 Patient has correct armband on for positive identification. Provided Education on: ap3 discharge instructions. Pulse ox on. NIBP on. Administered Medications: 09:05 Drug: Alum-Mag Hydroxide-Simeth PO Suspension (200 mg-200 mg-20 mg/5 mL) 30 ml PO once ap3 Route: PO; 09:57 Follow up: Response: No adverse reaction ap3 Medication: 10:16 VIS not applicable for this client. ap3 Outcome: 10:00 Discharge ordered by . rt 10:15 Discharged to home ambulatory, ap3 10:15 Condition: good 10:15 Discharge instructions given to patient, Instructed on discharge instructions, follow up and referral plans. Demonstrated understanding of instructions, follow-up care, 10:16 Patient left the ED. ap3 Signatures: Dispatcher [employer] EDMS Alia Martinez RN RN ap3 Rainer Espinoza MD MD rt Debby Barboza mg5
--- NOTE | 2023-08-12 10:01 | EDPHYS ---
Physician Documentation [facility] Name: Traci Mondragon Age: 48 yrs Sex: Female : 1975 Arrival Date: 08/12/2023 Time: 08:21 Bed DX5 Private MD: ED Physician Rainer Espinoza HPI: 08/12 10:40 This 48 yrs old Black Female presents to ER via Ambulatory with complaints of Chest rt Pain. 10:40 Patient presents to the ED with chest pain starting last night, she describes it as an rt indigestion. States that is somewhat improved and only mild currently. Pain is burning in nature, nonradiating, no other symptoms at this time.. 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 - Social history:: Smoking status: Patient reports the use of cigarette tobacco products, smokes one-half pack cigarettes per day. - Family history:: not pertinent. ROS: 10:40 Constitutional: Negative for fever, chills, and weight loss, Respiratory: Negative for rt shortness of breath, cough, wheezing, and pleuritic chest pain, Abdomen/GI: Negative for abdominal pain, nausea, vomiting, diarrhea, and constipation, MS/Extremity: Negative for injury and deformity, Skin: Negative for injury, rash, and discoloration, Neuro: Negative for headache, weakness, numbness, tingling, and seizure, Psych: Negative for depression, anxiety, suicide ideation, homicidal ideation, and hallucinations, 10:40 Cardiovascular: Positive for chest pain, Negative for edema, Exam: 10:40 Constitutional: This is a well developed, well nourished patient who is awake, alert, rt and in no acute distress. Head/Face: Normocephalic, atraumatic. Chest/axilla: Normal chest wall appearance and motion. Nontender with no deformity. No lesions are appreciated. Cardiovascular: Regular rate and rhythm with a normal S1 and S2. No gallops, murmurs, or rubs. Normal PMI, no JVD. No pulse deficits. Respiratory: Lungs have equal breath sounds bilaterally, clear to auscultation and percussion. No rales, rhonchi or wheezes noted. No increased work of breathing, no retractions or nasal flaring. Abdomen/GI: Soft, non-tender, with normal bowel sounds. No distension or tympany. No guarding or rebound. No evidence of tenderness throughout. Skin: Warm, dry with normal turgor. Normal color with no rashes, no lesions, and no evidence of cellulitis. MS/ Extremity: Pulses equal, no cyanosis. Neurovascular intact. Full, normal range of motion. Neuro: Awake and alert, GCS 15, oriented to person, place, time, and situation. Cranial nerves II-XII grossly intact. Motor strength 5/5 in all extremities. Sensory grossly intact. Cerebellar exam normal. Normal gait. Psych: Awake, alert, with orientation to person, place and time. Behavior, mood, and affect are within normal limits. 10:40 ECG was reviewed by the Attending Physician. Vital Signs: 08:37 BP 168 / 98; Pulse 76; Resp 17; Temp 97.7; Pulse Ox 100% ; Weight 91.63 kg; Height 5 ap3 ft. 5 in. ; Pain 8/10; 08:37 Body Mass Index 33.61 (91.63 kg, 165.1 cm) ap3 08:37 Pain Scale: Adult ap3 MDM: 08:44 Patient medically screened. rt 10:40 Differential diagnosis: Dyspepsia, acute coronary syndrome, nonspecific chest pain, rt pneumonia. HEART Score: History: Slightly Suspicious (0), ECG: Normal (0), Age: > 45 and < 65 years (1), Risk Factors: 1 or 2 risk factors (1), Troponin: < or = 1 x Normal Limit (0), Total Score = 2. Data reviewed: vital signs, nurses notes, lab test result(s), EKG, radiologic studies. Consideration of Admission/Observation Escalation of care including admission/observation considered. Patient is low heart score, given chronicity of symptoms, 1 set of enzymes is sufficient to rule out acute coronary syndrome, symptoms are improved with Maalox, no indications for admission at this time.. I considered the following discharge prescriptions or medication management in the emergency department Medications were administered in the Emergency Department. See MAR. Independent interpretation of the following test(s) in the Emergency Department X-Ray: My interpretation is No pneumonia seen on interpretation of x-ray images. Test considered but Not performed: CT: Low suspicion for pulmonary embolism, CT angiogram not dictated. Care significantly affected by the following chronic conditions: Diabetes, Hypertension. Counseling: I had a detailed discussion with the patient and/or guardian regarding the historical points, exam findings, and any diagnostic results supporting the discharge/admit diagnosis, lab results, radiology results, the need for outpatient follow up, to return to the emergency department if symptoms worsen or persist or if there are any questions or concerns that arise at home. Response to treatment: the patient's symptoms have resolved after treatment, the patient's pain is gone. 08/12 08:48 Order name: Basic Metabolic Panel; Complete Time: :54 rt 08/12 08:48 Order name: CBC with Diff; Complete Time: : rt 08/12 08:48 Order name: LFT's; Complete Time: :54 rt 08/12 08:48 Order name: Magnesium; Complete Time: :54 rt 08/12 08:48 Order name: Troponin HS; Complete Time: :54 rt 08/12 08:48 Order name: XRAY Chest (1 view); Complete Time: 09: rt 08/12 08:48 Order name: EKG; Complete Time: 08:49 rt 08/12 08:48 Order name: EKG - Nurse/Tech; Complete Time: 08:53 rt 08/12 08:48 Order name: IV Saline Lock; Complete Time: 08:53 rt 08/12 08:48 Order name: Labs collected and sent; Complete Time: 08:53 rt 08/12 08:48 Order name: O2 Per Protocol; Complete Time: 08:53 rt 08/12 08:48 Order name: O2 Sat Monitoring; Complete Time: 08:53 rt EC:40 Rate is 67 beats/min. Rhythm is regular, Normal Sinus Rhythm with No ectopy. QRS [place] rt is Normal. LA interval is normal. QRS interval is normal. QT interval is normal. No Q waves. T waves are Normal. No ST changes noted. Administered Medications: 09:05 Drug: Alum-Mag Hydroxide-Simeth PO Suspension (200 mg-200 mg-20 mg/5 mL) 30 ml PO once ap3 Route: PO; 09:57 Follow up: Response: No adverse reaction ap3 Disposition Summary: 08/12/23 10:00 Discharge Ordered Notes: Location: Home rt Problem: new rt Symptoms: are resolved rt Condition: Stable rt Diagnosis - Chest pain, unspecified rt Followup: rt - With: Private Physician - When: 2 - 3 days - Reason: Discharge Instructions: - Discharge Summary Sheet rt - Nonspecific Chest Pain, Adult rt Forms: - Medication Reconciliation Form rt - Thank You Letter rt - Antibiotic Education rt - Prescription Opioid Use rt - Patient Portal Instructions rt - Leadership Thank You Letter rt Signatures: Dispatcher [employer] Alia Chinchilla RN RN ap3 Rainer Espinoza MD MD rt
[2023-08-12 15:05] VITALS: BP 168/98; TEMP 97.7; O2SAT 100
--- NOTE | 2023-08-14 13:33 | EKG ---
Test Date: 2023-08-12 Test Time: 08:51:56 Supervisor Webbing: ALP MEASUREMENT RESULTS: Intervals: Rate: 67 DC: 154 QRSD: 82 QT: 418 QTc: [address] [place]: P: 45 DC: 154 QRS: 28 T: 54 INTERPRETIVE STATEMENTS: Normal sinus rhythm Normal ECG Compared to ECG 02/18/2023 12:50:06 Prolonged QT interval no longer present Electronically Signed On 08-14-23 13:24:20 TRANSVERSE ABDOMINAL MUSCLE SURGEON by Delvin Rasmussen
== END ==
LOC: ER 08:21
DX: R07.9 Chest pain, unspecified (principal)
CPT/HCPCS: 36415; 71045; 80048; 80076; 83735; 84484; 85025; 93005